=== PATIENT | male | born 1970 | race Caucasian/White ===

== ENCOUNTER 2020-05-13 08:50 | Outpatient (CLI) | payer OTHER, SELFPAY ==
--- NOTE | 2020-05-13 | EST_ITS ---
Patient Info Name: Jagjit Smith Age: 49 years : 1970 Gender: Male Ht: 71 in Wt: 270 lbs BSA: 2.52 m2 Exam Date: 05/13/2020 9:35 AM Exam Location: [facility] Stress Patient Status: Outpatient Admit Date: 05/13/2020 Staff Ordering Physician: Anthony, Love Crocker APRN Attending Provider: Joselito, Love Crocker APRN Exercise Technologist: Luciana Vora RDCS Exercise Physician: Cristhian Pineda DO Exam Type: CA stress test treadmill Study Info Indications R07.9 - Chest pain, unspecified A treadmill exercise stress test was performed. Summary 1. 1. Negative Timoteo exercise stress test for ischemic ST changes by ECG criteria. 2. 2. Reduced functional capacity, achieving 8 METs of workload. 3. 3. Appropriate HR response to exercise. 4. 4. Appropriate HR recovery at 1 minute post exercise. 5. 5. No imaginng with stress testing. 6. 6. Patient informed of the above results. Protocol: Timoteo Stress ECG Details Stage: REST Duration (min): 8 min : 19 sec Speed (mph): 0.0 Grade (%): 0 HR (bpm): 63 SBP (mmHg): 101 DBP (mmHg): 79 METS: --- Stage: REST Duration (min): 20 min : 3 sec Speed (mph): 0.0 Grade (%): 0 HR (bpm): 67 SBP (mmHg): 101 DBP (mmHg): 79 METS: --- Stage: STAGE 1 Duration (min): 1 min : 0 sec Speed (mph): 1.7 Grade (%): 10 HR (bpm): 101 SBP (mmHg): 101 DBP (mmHg): 79 METS: --- Stage: STAGE 1 Duration (min): 2 min : 0 sec Speed (mph): 1.7 Grade (%): 10 HR (bpm): 112 SBP (mmHg): 101 DBP (mmHg): 79 METS: --- Stage: STAGE 1 Duration (min): 3 min : 0 sec Speed (mph): 1.7 Grade (%): 10 HR (bpm): 119 SBP (mmHg): 122 DBP (mmHg): 99 METS: --- Stage: STAGE 2 Duration (min): 1 min : 0 sec Speed (mph): 2.5 Grade (%): 12 HR (bpm): 127 SBP (mmHg): 122 DBP (mmHg): 99 METS: --- Stage: STAGE 2 Duration (min): 2 min : 0 sec Speed (mph): 2.5 Grade (%): 12 HR (bpm): 135 SBP (mmHg): 157 DBP (mmHg): 95 METS: --- Stage: STAGE 2 Duration (min): 3 min : 0 sec Speed (mph): 2.5 Grade (%): 12 HR (bpm): 145 SBP (mmHg): 157 DBP (mmHg): 95 METS: --- Stage: STAGE 3 Duration (min): 0 min : 38 sec Speed (mph): 3.4 Grade (%): 14 HR (bpm): 150 SBP (mmHg): 157 DBP (mmHg): 95 METS: --- Stage: RECOVERY Duration (min): 0 min : 21 sec Speed (mph): 1.5 Grade (%): 0 HR (bpm): 152 SBP (mmHg): 177 DBP (mmHg): 93 METS: --- Stage: RECOVERY Duration (min): 1 min : 21 sec Speed (mph): 0.0 Grade (%): 0 HR (bpm): 116 SBP (mmHg): 193 DBP (mmHg): 91 METS: --- Stage: RECOVERY Duration (min): 2 min : 21 sec Speed (mph): 0.0 Grade (%): 0 HR (bpm): 100 SBP (mmHg): 193 DBP (mmHg): 91 METS: --- Stage: RECOVERY Duration (min): 3 min : 21 sec S
[2020-05-13 10:39] LABS: Basophils Absolute Auto 0.1 K/mm3 (0.0-0.1); Basophils Percent Auto 0.6 % (0.2-1.2); Eosinophils Absolute Auto 0.4 K/mm3 (0-0.3); Eosinophils Percent Auto 3.7 % (0-4.4); Hemoglobin 16.1 g/dL (14.0-18.0); Immature Granulocyte Absolute 0.05 K/mm3 (0.00-0.031); Immature Granulocyte Percent A 0.5 % (0-0.5); Lymphocytes Absolute Auto 3.13 K/mm3 (0.9-3.2); Lymphocytes Percent Auto 30.1 % (18.3-44.2); Mean Corpuscular HGB Conc 33.5 g/dl (32-36); Mean Corpuscular Hemoglobin 30.4 pg (26-34); Mean Corpuscular Volume 90.6 fl (80-100); Mean Platelet Volume 10.6 fl (7.4-10.4); Monocytes Absolute Auto 0.7 K/mm3 (0.1-0.6); Monocytes Percent Auto 7.1 % (2.6-8.5); Platelet Count Result 243 k/mm3 (150-375); Red Cell Distribution Width 13.4 % (11.5-14.5); White Blood Count 10.4 K/mm3 (4.5-10.0)
[2020-05-13 10:52] LABS: Alanine Aminotransferase 23 U/L (4-50); Albumin Level 3.9 g/dL (3.5-5.1); Alkaline Phosphatase 96 U/L (38-126); Anion Gap 8 mmol/L (8-16); Aspartate Amino Transferase 26 U/L (17-59); Bilirubin,Total 0.5 mg/dL (0.2-1.3); Blood Urea Nitrogen 15 mg/dL (9-20); Calcium 9.3 mg/dL (8.4-10.2); Carbon Dioxide 24 mmol/L (22-30); Chloride 104 mmol/L (98-107); Cholesterol 224 mg/dL (0-200); Estimated Glomerular Filt Rate > 60; Glucose 110 mg/dL (75-110); HDL Direct 36 mg/dL; Potassium 4.5 mmol/L (3.4-5.0); Sodium 136 mmol/L (137-145); Triglycerides 109 mg/dL (<150)
[2020-05-13 11:04] LABS: LDL Cholesterol Direct 151 mg/dL
[2020-05-13 11:08] LABS: Creatinine Urine 188.6 mg/dL
[2020-05-13 11:21] LABS: Free T4 Free Thyroxine 0.84 ng/mL (0.78-2.19); Vitamin D 25 Hydroxy 28.6 ng/mL
[2020-05-13 11:22] LABS: Total Triiodothyronine (T3) 1.28 NG/ML (0.97-1.69)
[2020-05-13 12:25] LABS: Microalbumin Urine Random > 1140.0 mg/L (0-16.7)
== END 2020-05-13 08:51 | disposition home or self-care (01) ==
PROVIDERS: PCP Family Medicine; Visit Provider Nurse Practitioner Family
DX: R07.9 Chest pain, unspecified (principal)
CPT/HCPCS: 36415; 80053; 80061; 82043; 82306; 84439; 84443; 84480; 85025; 93017

== ENCOUNTER 2020-12-26 16:38 | Outpatient (CLI) | payer OTHER, SELFPAY ==
--- NOTE | ~2020-12-26 | XR_ITS ---
EXAMINATION: XR foot LT min 3V DATE: 12/26/2020 16:57 INDICATION: Left heel pain. TECHNIQUE: 4 views of left foot were obtained. COMPARISON: None. FINDINGS: Bone alignment is normal. No fracture. There is mild osteoarthritis of first metatarsophala ngeal joint and talonavicular joint. There are enthesophytes at the posterior and plantar aspects of calcaneal tuberosity. IMPRESSION: 1. Mild polyarticular osteoarthritis. Reviewed, dictated and finalized at location A.
== END 2020-12-26 16:39 | disposition home or self-care (01) ==
LOC: ANHIMG 16:41
PROVIDERS: PCP Family Medicine; Visit Provider Nurse Practitioner
DX: M19.072 Primary osteoarthritis, left ankle and foot (principal)
CPT/HCPCS: 73630

== ENCOUNTER 2022-02-13 23:41 | Inpatient (IN) | payer OTHER, SELFPAY ==
--- NOTE | ~2022-02-13 | NM_ITS ---
EXAMINATION: NM pulmonary perfusion DATE: 02/14/2022 12:28 INDICATION: Chest pain. TECHNIQUE: 5.2 mCi Tc-99m MAA was administered intravenously for perfusion images. Scintigraphic willie ges of the chest were obtained. COMPARISON: Chest 2 views 02/14/2022 FINDINGS: Perfusion images show a moderate-sized defect in posterobasal segment left lower lobe. There is a mod erate-sized defect in posterobasal segment right lower lobe. There are small defects in the lower lob es and upper lobes. There is a moderate-sized defect in apicoposterior segment left upper lobe. IMPRESSION: 1. Nondiagnostic (intermediate probability for pulmonary embolism). Reviewed, dictated and finalized at location A.
--- NOTE | ~2022-02-13 | XR_ITS ---
EXAMINATION: XR chest 2V DATE: 02/14/2022 00:21 INDICATION: Chest pain. TECHNIQUE: Frontal and lateral views of the chest were obtained. COMPARISON: Chest 2 views 03/30/2016 FINDINGS: Roosevelt B-lines are noted, consistent mild pulmonary edema. No pleural effusion or pneumotho rax. The heart size is normal. IMPRESSION: 1. Mild pulmonary edema. Reviewed, dictated and finalized at location A. IMPRESSION: 1. Mild pulmonary edema.
--- NOTE | ~2022-02-13 | CT_ITS ---
EXAMINATION: CTA chest PE protocol DATE: 02/15/2022 11:42 INDICATION: Dyspnea. TECHNIQUE: Computed tomography angiography (CTA) of the chest was performed with 100 mL Omnipaque-350 intravenous contrast timed to evaluate the pulmonary arteries. Coronal maximum intensity projection 3D-reconstructions were created by the technologist. Automated exposure control and iterative reconst ruction technique were employed. The dose-length product was 859.77 mGy-cm. COMPARISON: Chest 2 views 02/14/2022 FINDINGS: There is mild emphysema. There is mild scarring in paraspinal right lower lobe. There is no pleural effusion. The heart size is normal. There are coronary artery calcifications. No pericardial effusion. There is no pulmonary embolus. There is severe cervical spondylosis and mild thoracic spon dylosis. IMPRESSION: 1. No pulmonary embolus. Sensitivity is mildly decreased by motion artifact. 2. Mild emphysema. Reviewed, dictated and finalized at location A.
--- NOTE | 2022-02-13 23:42 | ECG_ITS ---
Measurements Intervals [place] Rate: 85 P: 51 VA: 138 QRS: 22 QRSD: 101 T: 143 QT: 368 QTc: 438 Interpretive Statements SINUS RHYTHM ST DEVIATION AND MODERATE T-WAVE ABNORMALITY, CONSIDER LATERAL ISCHEMIA ABNORMAL ECG NO PREVIOUS ECG AVAILABLE FOR COMPARISON Electronically Signed On 02-14-2022 14:42:38 CDT by Randy Krishna M.D.
[2022-02-13 23:43] VITALS: BP 191/125; PULSE 92; RESP 22; TEMP 36.7; O2SAT 98
[2022-02-14] VITALS (46 sets, daily range): BP systolic 123–194; BP diastolic 75–120; PULSE 65–96; RESP 11–24; TEMP 35.9–36.7; O2SAT 94–100; BMI 36.2
[2022-02-14 00:17] LABS: Basophils Percent Auto 0.3 % (0.2-1.2); Eosinophils Absolute Auto 0.4 K/mm3 (0-0.3); Hematocrit 43.1 % (42.0-52.0); Hemoglobin 14.6 g/dL (14.0-18.0); Immature Granulocyte Absolute 0.05 K/mm3 (0.00-0.031); Immature Granulocyte Percent A 0.4 % (0-0.5); Lymphocytes Absolute Auto 2.98 K/mm3 (0.9-3.2); Lymphocytes Percent Auto 25.2 % (18.3-44.2); Mean Corpuscular HGB Conc 33.9 g/dl (32-36); Mean Corpuscular Hemoglobin 29.6 pg (26-34); Mean Corpuscular Volume 87.2 fl (80-100); Mean Platelet Volume 10.5 fl (7.4-10.4); Monocytes Absolute Auto 0.8 K/mm3 (0.1-0.6); Monocytes Percent Auto 6.9 % (2.6-8.5); Neutrophils Absolute Auto 7.6 K/mm3 (1.3-6.7); Neutrophils Percent Auto 64.2 % (45.5-73.1); Platelet Count Result 240 k/mm3 (150-375); Red Blood Count 4.94 M/mm3 (4.6-6.20); Red Cell Distribution Width 13.3 % (11.5-14.5); White Blood Count 11.8 K/mm3 (4.5-10.0)
[2022-02-14 00:22] LABS: Prothrombin Time 12.8 Seconds (11.1-14.7)
[2022-02-14 00:23] LABS: Alanine Aminotransferase 25 U/L (6-50); Albumin Level 3.7 g/dL (3.5-5.1); Alkaline Phosphatase 102 U/L (38-126); Anion Gap 7 mmol/L (8-16); Aspartate Amino Transferase 45 U/L (17-59); Bilirubin,Total 0.1 mg/dL (0.2-1.3); Blood Urea Nitrogen 25 mg/dL (9-20); Calcium 8.5 mg/dL (8.4-10.2); Carbon Dioxide 26 mmol/L (22-30); Chloride 105 mmol/L (98-107); Estimated CRCL calculation 71 ml/min; Estimated Glomerular Filt Rate 54; Glucose 131 mg/dL (65-110); Lipase 88 U/L (23-300); Partial Thromboplastin Time 28.3 SECONDS (22.3-36.8); Potassium 3.8 mmol/L (3.4-5.0); Sodium 138 mmol/L (137-145)
--- NOTE | 2022-02-14 01:06 | PC.NURSE ---
Talked to Dania in lab at 01:06 to add on D Dimer
--- NOTE | 2022-02-14 01:14 | ED.CHESTPAIN ---
HPI - Chest Pain General Chief Complaint: Chest Pain Stated Complaint: chest pain Time Seen by Provider: 02/14/22 00:41 History of Present Illness HPI narrative: 51-year-old male with smoker hypertension presenting to the emergency department for evaluation of left-sided chest wall pain. Patient states last night he began developing the chest pain and has persisted. Patient did have a stress test end of last year at [facility]. Patient does report some associated chest tightness with this. Patient denies any radiation of the left-sided chest pain into his back into his arm. Related Data Home Medications Medication Instructions Recorded Confirmed No Home Medications 02/14/22 02/14/22 Allergies Allergy/AdvReac Type Severity Reaction Status Date / Time milk Allergy Mild Unknown Verified 02/13/22 23:49 iodine Allergy Unknown Unknown Verified 02/13/22 23:49 povidone-iodine Allergy Unknown RASH Verified 02/13/22 23:49 Review of Systems Review of Systems: CONSTITUTIONAL: Denies fever, chills, or sweats. EYES: Denies visual changes, redness, or discharge. ENT: Denies rhinorrhea, congestion, sore throat, or otalgia. CARDIOVASCULAR: See HPI RESPIRATORY: Denies cough but does have some wheezing, chest tightness and some shortness of breath GASTROINTESTINAL: Denies abdominal pain, nausea, vomiting, or diarrhea. GENITOURINARY: Denies dysuria or hematuria. SKIN: Denies rash or itching. MUSCULOSKELETAL: Denies back pain, joint pain, or myalgia. NEUROLOGIC: Denies headache, numbness, or weakness. [facility] Past Medical History Medical History (Updated 02/14/22 @ 02:18 by Bc Latif MD) Degenerative arthritis of knee, bilateral GERD (gastroesophageal reflux disease) Hernia repair 2010 Hypertension Osteoarthritis of right knee Surgical History Surgical History H/O knee surgery R knee scope, medial and lateral meniscus, 2016 Dr. 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 HEAD: normocephalic, atraumatic. EYES: PERRLA/EOMI, conjunctivae clear. NOSE: Normal no drainage NECK: Supple. No adenopathy, no masses. RESPIRATORY: Airway patent, respirations nonlabored. Expiratory wheeze bilaterally CARDIOVASCULAR: Regular rate and rhythm without murmurs rubs or gallops. No reproducible chest wall tenderness to palpation. ABDOMINAL: Soft, nontender, nondistended, normal bowel sounds MUSCULOSKELETAL: Moves all extremities. Strength/ROM intact, No edema, No calf tenderness. NEURO: Alert. Cranial nerves II through XII intact. Grossly intact SKIN: Warm, dry. Normal Color Course Course Emergency Course: Patient did receive 324 mg aspirin, 4 mg morphine, losartan, sublingual nitro, 25 mg of p.o. metoprolol and states his pain is now resolved. Repeat EKG still does show ischemic change but no evidence of acute STEMI. Discussed with Dr. Allen for cardiology and patient was also treated with 6.25 mg of Coreg to be given twice daily. Patient will be made NPO. She requested 1 dose of Lovenox to be given. Cardiology also requested admission by the hospitalist due to the blood pressure issues along with wheezing and ultimate need for a VQ scan. Patient did have an lubna
[2022-02-14] MEDS: MORPHINE SULFATE (*CRX) 4 MG/ML INJ IV PUSH (01:18)
[2022-02-14] MEDS: METOPROLOL TARTRATE 25 MG TABLET PO (01:20)
[2022-02-14] MEDS: NITROGLYCERIN SL 0.4 MG TABLET SUBLINGUAL (01:21)
[2022-02-14] MEDS: LOSARTAN POTASSIUM 12.5 MG TABLET PO (01:46)
[2022-02-14] MEDS: ALBUTEROL SULFATE NEB 2.5 MG/3 ML INH 5 MG INHALATION (01:51)
[2022-02-14] MEDS: ENOXAPARIN 120 MG/0.8 ML SYRINGE 110 MG SUB-Q (02:15)
[2022-02-14] MEDS: NITROGLYCERIN OINTMENT 1 INCH DOSE TRANSDERM (02:36)
[2022-02-14] MEDS: predniSONE 40 MG, predniSONE 10 MG 50 MG PO ×2 (03:49→10:28)
--- NOTE | 2022-02-14 04:55 | ADMGEN ---
This patient, Jagjit Smith, was admitted to IMU Room 200-01 at 0445. Patient/family oriented to hospital policies and general routines including ID bracelet, bed and alarms, visiting hours, pain management, procedures, bathroom and other care routines, personal items, smoking policy, room service/diet, and visiting hours. Information on how to activate the Rapid Response Team has been discussed. Patient/Family are encouraged to report perceived risks to care and to ask questions if they do not understand what they are told or what they should do.
--- NOTE | 2022-02-14 05:19 | ADMGEN ---
This patient, Jagjit Smith, was admitted to IMU Room 200-01 @ 0510. Patient/family oriented to hospital policies and general routines including ID bracelet, bed and alarms, visiting hours, pain management, procedures, bathroom and other care routines, personal items, smoking policy, room service/diet, and visiting hours. Information on how to activate the Rapid Response Team has been discussed. Patient/Family are encouraged to report perceived risks to care and to ask questions if they do not understand what they are told or what they should do.
--- NOTE | 2022-02-14 07:25 | ECG_ITS ---
Measurements Intervals [place] Rate: 78 P: 62 NM: 146 QRS: 42 QRSD: 96 T: 142 QT: 401 QTc: 459 Interpretive Statements SINUS RHYTHM WITH SINUS ARRHYTHMIA ST DEVIATION AND MODERATE T-WAVE ABNORMALITY, CONSIDER ANTEROLATERAL ISCHEMIA ABNORMAL ECG COMPARED TO ECG 02/14/2022 00:58:02 NO SIGNIFICANT CHANGES Electronically Signed On 02-14-2022 14:47:35 CDT by Randy Krishna M.D.
--- NOTE | 2022-02-14 07:41 | PM.IMHP ---
H&P: HPI History of Present Illness Date/Time: 02/14/22 07:41 Chief Complaint: Chest pain Narrative: 51-year-old male with past medical history of hyperlipidemia, hypertension, tobacco use, as well as former meth and alcohol use who presented to the ER with chest pain. Patient reported that the symptoms started night before last. The pain as in the central chest and radiated around to the left chest in ribcage. 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 He also reports prior numerous rib fractures on the left side and thought that it could be due to old scarring had from prior rib fractures. The symptoms persisted and he decided to come to the ER. His pain is aching in nature with occasional episodes of sharp and stabbing. The pain is been waxing and waning. He reports that his current pain is a 1-2/10 in intensity. Has worse the pain was a 30/10 in intensity. The pain radiates through to the back. Has been accompanied by some diaphoresis. The patient reports that the pain is accompanied by a heaviness in his chest he reports that he feels like he is mountain climbing and cannot catch his breath. His he has had 1-2 weeks of increasing wheezing. He has had 1 week of increased cough. He reports that his sputum is always black to green in color. He used to smoke 3 packs of cigarettes per day but has cut down to 1 pack of cigarettes per day over the last year. He does have a known history of hypertension but has not been taking any antihypertensives for quite some time. When he arrived to the ER his blood pressure was markedly elevated into the 190/120 range. He denies any lower extremity edema. He has been having some orthopnea. His pain is made worse with deep breathing and coughing. He denies any fevers or chills. He received his initial COVID vaccines years but has not had his booster. He reports that his urine has been darker than usual but he assumed that this was due to being dehydrated from working outside in the heat. He admits that he does not choose the best oral intake for hydration purposes. He does have a history of hyperlipidemia and hypertension but has not been taking his medications. He had a treadmill stress test April 2020 that was negative for evidence of ischemia. Review of Systems Review of Systems: 12 systems were reviewed with pertinent positives and negatives per HPI. Except as documented in the HPI, all other systems were reviewed and are negative. ON LICENSE OF [facility] Past Medical History Medical History (Updated 02/14/22 @ 07:53 by Saritha Swanson DO) Continuous tobacco abuse Degenerative arthritis of knee, bilateral Essential hypertension GERD (gastroesophageal reflux disease) Hyperlipidemia Obstructive sleep apnea Osteoarthritis of right knee Surgical History Surgical History (Updated 02/14/22 @ 07:53 by Saritha Swanson DO) H/O knee surgery R knee scope, medial and lateral meniscus, 2016 Dr. Connell History of tonsillectomy and adenoidectomy (06/2014) Complicated by postop hemorrhage requiring for additional surgeries History of umbilical hernia repair (08/2009) Family History Family History Mother Breast cancer Osteoarthritis Father , At age 66 Small cell lung cancer Social History Social History (Updated 02/14/22 @ 07:58 by Saritha Swanson DO) Social History: The patient lives in [place] with his of 17 years. He has 2 biological children I does not have much contact with. He has raised 6 step children and 2 foster children. His is currently with a baby after 17 years of trying. He has smoked as much as 3 packs of cigarettes per day but cut down to 1 pack of cigarettes per day last year. He used to drink 2 pint of hard liquor a day but quit drinking 2 months ago. He used to smoke methamphetamines but quit in 2004. He still smokes marijuana on occasion.
[2022-02-14] MEDS: SODIUM CHLORIDE 0.9% IV 1,000 ML 999 ML IV CONT ×2 (08:23→09:37)
[2022-02-14 09:03] LABS: SARS-CoV-2 RNA PCR Negative
[2022-02-14] MEDS: carvediloL 6.25 MG TABLET PO ×2 (10:29→20:38)
--- NOTE | 2022-02-14 10:33 | PM.CNCAR ---
Assessment and Plan Assessment and plan (1) Non-ST elevation HI (NSTEMI): Code(s): I21.4 - Non-ST elevation (NSTEMI) myocardial infarction Status: Acute Assessment and Plan: Patient presents with progressive shortness of breath, intermittent chest pain, EKG changes concerning for ischemia with elevated troponin consistent with non ST elevation myocardial infarction. Discussed presentation and concerns at length with the patient. Patient verbalized understanding. Recommend coronary angiography for delineation of his coronary anatomy. Patient has been pretreated with prednisone and antihistamines given reported rash with povidone iodine in the past. Risks versus benefits coronary angiography discussed including but not limited to myocardial infarction, stroke, bleeding complications. Patient agreed to proceed with coronary angiography. Discussed with Dr. Marques of Interventional Cardiology who also agrees. Further recommendations based on results of coronary angiography. Unequivocally counseled patient on importance of compliance with all medications including dual antiplatelet therapy and if not he runs a risk of serious potential complications including but not limited to myocardial infarction and or . Patient verbalized understanding and states he will be absolutely compliant with medications as recommended. DVT prophylaxis 2D echocardiogram And aspirin 81 mg daily, statin therapy. (2) Severe uncontrolled hypertension: Code(s): I10 - Essential (primary) hypertension Status: Acute Assessment and Plan: Improved but with suboptimal control. Initiate antihypertensive therapy as renal function permits. Add losartan 25 mg daily, Toprol XL 25 mg daily. Monitor renal function. (3) Continuous tobacco abuse: Code(s): Z72.0 - Tobacco use Status: Acute Assessment and Plan: Smoking cessation counseling performed (4) COPD exacerbation: Code(s): J44.1 - Chronic obstructive pulmonary disease with (acute) exacerbation Status: Acute Assessment and Plan: Per primary service. Bronchodilator therapy. (5) Acute kidney injury: Code(s): N17.9 - Acute kidney failure, unspecified Status: Acute Assessment and Plan: Resolved since presentation. Continue monitor closely. Likely secondary to degree of intravascular volume depletion. History of Present Illness History of Present Illness Consult date/time: Date of service: 02/14/22 10:33 Cardiology consultation at the request of Dr. Swanson for opinion regarding chest pain and elevated troponin Requesting physician: Saritha Swanson, Consult reason: chest pain Reason For Visit: NSTEMI Narrative: Patient is a pleasant 51-year-old male with past medical history significant for untreated hypertension, hyperlipidemia, history of tobacco abuse, remote methamphetamine and alcohol abuse presented to ER with proximally 2 days of intermittent chest pain and shortness of breath. Patient notes please 1 week or so of increased cough, shortness of breath and wheezing with activity and complained of chest pain located in the center and left chest described as a heavy pressure-like sensation as well as intermittent sharp pains. He describes sharp fleeting chest pain with cough or deep breathing with residual intervening chest pressure and or tightness which then worsened and given his progressive shortness of breath he presented to ER for further evaluation. He notes residual mild chest discomfort worse with coughing deep breathing. At presentation patient was significantly hypertensive with systolic blood pressure in the 190s with a creatinine 1.4 which has improved to 0.9. Initial troponin was elevated at 1.760 subsequently 1.970, 3.190, 3.120. Patient denies any prior known history of CAD and myocardial infarction. Denies fevers, chills, bleeding, near-syncope or syncope or palpitations. Patient states he
[2022-02-14 10:44] LABS: Hemoglobin 13.4 g/dL (14.0-18.0); Mean Corpuscular HGB Conc 31.9 g/dl (32-36); Mean Corpuscular Hemoglobin 28.8 pg (26-34); Mean Corpuscular Volume 90.1 fl (80-100); Mean Platelet Volume 10.6 fl (7.4-10.4); Platelet Count Result 210 k/mm3 (150-375); Red Blood Count 4.66 M/mm3 (4.6-6.20); Red Cell Distribution Width 13.3 % (11.5-14.5); White Blood Count 9.6 K/mm3 (4.5-10.0)
[2022-02-14 11:07] LABS: Anion Gap 2 mmol/L (8-16); Blood Urea Nitrogen 19 mg/dL (9-20); Carbon Dioxide 25 mmol/L (22-30); Chloride 109 mmol/L (98-107); Cholesterol 162 mg/dL (0-200); Creatine Kinase 229 U/L (55-170); Estimated CRCL calculation 110 ml/min; Estimated Glomerular Filt Rate > 60; Glucose 123 mg/dL (65-110); HDL Direct 40 mg/dL; Potassium 4.3 mmol/L (3.4-5.0); Sodium 136 mmol/L (137-145); Triglycerides 58 mg/dL (<150)
[2022-02-14 11:15] LABS: LDL Cholesterol Direct 100 mg/dL
[2022-02-14 11:28] LABS: NT Pro B Type Natriuretic Pept 2910 pg/mL (5-100)
[2022-02-14] MEDS: FUROSEMIDE INJ 40 MG/4 ML VIAL IV PUSH (12:28)
[2022-02-14] MEDS: diphenhydrAMINE HCl CAP 25 MG CAPSULE 50 MG PO (13:01)
--- NOTE | 2022-02-14 13:39 | WPDMODSED ---
Moderate Sedation Note-Pt Data Patient Data Diagnosis: acute coronary syndrome Present Complaint: intermittent chest pain Procedure to be performed/Plan: left heart catheterization/possible PCI Allergies Allergy/AdvReac Type Severity Reaction Status Date / Time milk Allergy Mild Unknown Verified 02/13/22 23:49 povidone-iodine Allergy Unknown RASH Verified 02/13/22 23:49 Home Medications Medication Instructions Recorded Confirmed Type No Home Medications 02/14/22 02/14/22 History Current Medications: Active Medications Albuterol (Albuterol Sulfate Neb 2.5 Mg/3 Ml Inh) 2.5 mg INHALATION Q6HRT [facility] Last Admin: 02/14/22 13:31 Dose: Not Given Aspirin (Aspirin 81 Mg Enteric Tablet) 81 mg PO QAM [facility] Atorvastatin Calcium (Atorvastatin 40 Mg Tablet) 80 mg PO DAILY [facility] Carvedilol (Carvedilol 6.25 Mg Tablet) 6.25 mg PO Q12HR [facility] Last Admin: 02/14/22 10:29 Dose: 6.25 mg Diphenhydramine HCl (Diphenhydramine Hcl Cap 25 Mg Capsule) 50 mg PO ONCE ONE Stop: 02/14/22 16:01 Last Admin: 02/14/22 13:01 Dose: 50 mg Hydralazine HCl (Hydralazine Hcl 20 Mg/Ml Vial) 10 mg IV PUSH Q4H PRN PRN Reason: SBP greater than 160 Ipratropium [place] (Ipratropium Br 0.02% Inh Soln 0.5 Mg/2.5 Ml Vial) 0.5 mg INHALATION Q6HRT [facility] Last Admin: 02/14/22 13:31 Dose: Not Given Morphine Sulfate (Morphine Sulfate (*Crx) 4 Mg/Ml Inj) 4 mg IV PUSH Q2H PRN PRN Reason: Pain Rated 7-10 Perflutren Lipid Microsphere (Perflutren Lipid Microspheres 1.5 Ml Vial Diluted To 10 Ml Total Volume) 0 ml IV PUSH ONCE PRN; Protocol PRN Reason: adequate visualization Prednisone 40 mg/ Prednisone (10 mg) 50 mg PO Q6H [facility] Stop: 02/14/22 16:01 Last Admin: 02/14/22 10:28 Dose: 50 mg Sedation/Anesthesia: No previous sedation/anesthesia problems (including family history). [facility] Past Medical History Medical History Continuous tobacco abuse Degenerative arthritis of knee, bilateral Essential hypertension GERD (gastroesophageal reflux disease) Hyperlipidemia Obstructive sleep apnea Osteoarthritis of right knee Surgical History Surgical History H/O knee surgery R knee scope, medial and lateral meniscus, 2016 Dr. Connell History of tonsillectomy and adenoidectomy (06/2014) Complicated by postop hemorrhage requiring for additional surgeries History of umbilical hernia repair (08/2009) Family History Family History Mother Breast cancer Osteoarthritis Father , At age 66 Small cell lung cancer Social History Social History Social History: The patient lives in [place] with his of 17 years. He has 2 biological children I does not have much contact with. He has raised 6 step children and 2 foster children. His is currently with a baby after 17 years of trying. He has smoked as much as 3 packs of cigarettes per day but cut down to 1 pack of cigarettes per day last year. He used to drink 2 pint of hard liquor a day but quit drinking 2 months ago. He used to smoke methamphetamines but quit in 2004. He still smokes marijuana on occasion. 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
--- NOTE | 2022-02-14 14:44 | ECG_ITS ---
Measurements Intervals [place] Rate: 70 P: 69 [place]: 151 QRS: 51 QRSD: 97 T: 129 QT: 460 QTc: 498 Interpretive Statements SINUS RHYTHM BASELINE ARTIFACT ST DEVIATION AND MODERATE T-WAVE ABNORMALITY, CONSIDER ANTEROLATERAL ISCHEMIA ABNORMAL ECG COMPARED TO ECG 02/14/2022 07:35:22 NO SIGNIFICANT CHANGES Electronically Signed On 02-14-2022 16:46:32 CDT by Randy Krishna M.D.
--- NOTE | 2022-02-14 14:51 | WPDCARDPROC ---
Cardiac Cath Procedure Note Date of procedure:: 02/14/22 Performing physician:: Zack Marques MD Indication:: acute coronary syndrome Brief clinical history:: this is a 51-year-old gentleman with a prior history of substance abuse who entered the hospital with intermittent chest pain, anterior ischemic ST segment and T-wave abnormalities and moderate troponin rise. Procedure Procedure performed:: Left ventriculogram coronary angiogram PCI(ASHLEY) to the LAD Sedation/Medication given:: fentanyl 50 mg Versed 2 mg case start time 1:43 p.m. case end time 2:37 p.m. sedation provided by Jaycob Dias RN, trained observer Access site:: right femoral artery Estimated blood loss:: 25 cc Procedure note:: patient was brought to the cardiac catheterization lab in the postabsorptive state where the right femoral region was prepped and draped in the usual sterile fashion. Anesthesia was provided with 1% lidocaine infiltrated locally. Using the modified Seldinger technique the femoral artery was punctured a 5 Lao vascular sheath was placed. I then used a 5 Lao angled pigtail catheter to measure left-sided hemodynamics and to inject LV g in the TORRES projection. After this I used a standard 5 Lao JR4 catheter to engage and inject the right coronary artery and then a 5 Lao FL 5 catheter to engage and inject the left coronary artery following this the cine PCI of the left anterior descending was recommended and carried out as detailed below. Prior to PCI a 5 Lao sheath was changed out over the guidewire for a 6 Lao sheath. He was systemically anticoagulated with a bolus and infusion of Angiomax and he received aspirin 325 mg and clopidogrel 600 mg in the cath lab technologist. Following PCI the sheath was sutured into position the patient taken to the holding area for recovery and sheath removal. Procedure was well tolerated and uncomplicated. Patient left the cath lab technologist with no evidence of groin hematoma. Findings:: Hemodynamics: Central aortic pressure is 150 over 84 left ventricle 150/5 end-diastolic pressure is 24. No significant gradient on pullback across the aortic valve. Left ventricle: The LV is slightly enlarged the systolic function is significantly reduced. The anterior wall is mildly hypodynamic the inferior posterior wall is severely hypodynamic. The global ejection fraction I would visually estimate to be 35%. The left main coronary artery is short and nicely patent the left anterior descending is a moderate caliber artery proximally and medium to small caliber after the major diagonal takes its origin. After the major diagonal is seen there is a 99% stenosis in the LAD. There is JIMMY 2 flow distal to this high-grade lesion. The circumflex is a moderate caliber artery is dominant to the posterior circulation the circumflex system, marginal branches, posterior branches are angiographically free of disease. The right coronary artery is medium in caliber non dominant right ventricular vessel without any significant disease intervention: The left coronary artery was engaged using a 6 Lao CLS 4 guiding catheter. I used a 0.014 BMW coronary guidewire to wire the LAD easily advancing the wire down into the apical segment. The target lesion was then pre-dilated using a 2.0 x 20 and then a 3.0 x 20 Monster angioplasty balloon. Following the pre dilatation there was minimal residual stenosis. Then I stented the target lesion using a 3.0 x 26 mm [facility] stent at 12 atmospheres for 60 seconds with very good angiographic result. There was no residual stenosis disruption dissection or distal embolization. Conclusion:: 1. Severe single-vessel coronary artery disease with 99% stenosis seen in the LAD after the major diagonal origin is seen. This lesion was successfully treated with the Orsiro drug-eluting stent detailed above with a good angiographic result 2. left coronary domina
--- NOTE | 2022-02-14 14:51 | PC.NURSE ---
To cardiac labor relations consultant for procedure
[2022-02-14] MEDS: ALBUTEROL SULFATE NEB 2.5 MG/3 ML INH INHALATION (15:16)
[2022-02-14] MEDS: IPRATROPIUM BR 0.02% INH SOLN 0.5 MG/2.5 ML VIAL INHALATION (15:16)
[2022-02-14] MEDS: hydrALAZINE HCL 20 MG/ML VIAL 10 MG IV PUSH (16:45)
[2022-02-14] MEDS: SODIUM CHLORIDE 0.9% IV 1,000 ML 125 ML IV CONT (16:49)
--- NOTE | 2022-02-14 20:05 | PC.NURSE ---
1900- received pt from cardiac labor specialist- right groin with dressing CDI- pedal pulse palpable- pt denies pain- bedrest until @ [place]- oncoming RN at bedside and received report- monitor SR 90's
[2022-02-14] MEDS: POTASSIUM CHLORIDE 20 MEQ TABLET 40 MEQ PO (20:39)
--- NOTE | 2022-02-14 21:14 | PCRCNOTE ---
1999 treatment charted over in OCT. Pt given 1999 treatment, RT unable to scan in [facility].
[2022-02-15] VITALS (21 sets, daily range): BP systolic 139–162; BP diastolic 86–115; PULSE 71–91; RESP 14–22; TEMP 36.2–36.8; O2SAT 96–100
[2022-02-15] MEDS: IPRATROPIUM BR 0.02% INH SOLN 0.5 MG/2.5 ML VIAL INHALATION ×3 (01:58→14:17)
[2022-02-15] MEDS: ALBUTEROL SULFATE NEB 2.5 MG/3 ML INH INHALATION ×2 (01:58→08:26)
--- NOTE | 2022-02-15 05:11 | ECG_ITS ---
Measurements Intervals [place] Rate: 86 P: 61 [place]: 145 QRS: 45 QRSD: 97 T: 185 QT: 366 QTc: 438 Interpretive Statements SINUS RHYTHM WITH SINUS ARRHYTHMIA ST SEGMENT ABNORMALITY COMPATIBLE WITH ANTERIOR ISCHEMIA COMPARED TO ECG 02/14/2022 15:12:[address] SEGMENT CHANGES ARE IMPROVED Electronically Signed On 02-16-2022 16:19:54 CDT by Zack Marques M.D.
--- NOTE | 2022-02-15 08:42 | PM.IMPN ---
Progress Note: A&P Assessment and Plan (1) Non-ST elevation GA (NSTEMI): Code(s): I21.4 - Non-ST elevation (NSTEMI) myocardial infarction Status: Acute (2) COPD exacerbation: Code(s): J44.1 - Chronic obstructive pulmonary disease with (acute) exacerbation Status: Acute (3) Elevated d-dimer: Code(s): R79.89 - Other specified abnormal findings of blood chemistry Status: Acute (4) Continuous tobacco abuse: Code(s): Z72.0 - Tobacco use Status: Acute (5) Severe uncontrolled hypertension: Code(s): I10 - Essential (primary) hypertension Status: Acute Subjective Date/time seen: 02/15/22 08:42 Patient is a 51 yo male with medical history of hypertension, hyperlipidemia, GERD, GABBY and tobacco dependence, who presented from home for c/o chest pain. Objective Data Vital Signs Vital Signs: Vital Signs - 24 hr 02/14/22 10:29 02/14/22 10:00 02/14/22 15:17 Temperature Pulse Rate 86 77 69 Respiratory Rate 13 Blood Pressure Pulse Oximetry 100 Oxygen Delivery Room Air 02/14/22 15:10 02/14/22 15:41 02/14/22 14:55 Temperature 97.3 F L Pulse Rate 69 68 65 Respiratory Rate 13 13 14 Blood Pressure 164/120 H Pulse Oximetry 99 Oxygen Delivery Room Air 02/14/22 16:40 02/14/22 15:10 02/14/22 15:25 Temperature Pulse Rate 72 65 66 Respiratory Rate 16 16 16 Blood Pressure 152/107 H 153/112 H 151/96 H Pulse Oximetry 99 100 99 Oxygen Delivery Room Air Room Air Room Air 02/14/22 15:40 02/14/22 16:10 02/14/22 17:00 Temperature Pulse Rate 67 67 73 Respiratory Rate 14 16 16 Blood Pressure 140/99 H 134/106 H 137/83 Pulse Oximetry 97 100 99 Oxygen Delivery Room Air Room Air Room Air 02/14/22 17:05 02/14/22 17:10 02/14/22 17:15 Temperature Pulse Rate 72 75 74 Respiratory Rate 15 13 15 Blood Pressure 123/94 H 140/102 H 137/98 H Pulse Oximetry 99 99 99 Oxygen Delivery Room Air Room Air Room Air 02/14/22 17:20 02/14/22 17:25 02/14/22 17:30 Temperature Pulse Rate 70 72 77 Respiratory Rate 21 H 14 19 Blood Pressure 123/94 H 147/91 H 135/95 H Pulse Oximetry 99 99 99 Oxygen Delivery Room Air Room Air Room Air 02/14/22 17:35 02/14/22 17:40 02/14/22 17:45 Temperature Pulse Rate 77 78 77 Respiratory Rate 18 14 12 Blood Pressure 132/102 H 146/104 H 137/105 H Pulse Oximetry 99 99 99 Oxygen Delivery Room Air Room Air Room Air 02/14/22 17:50 02/14/22 18:00 02/14/22 18:15 Temperature Pulse Rate 76 78 76 Respiratory Rate 12 18 16 Blood Pressure 142/93 H 141/99 H 148/98 H Pulse Oximetry 100 99 100 Oxygen Delivery Room Air Room Air Room Air 02/14/22 18:30 02/14/22 18:45 02/14/22 20:38 Temperature Pulse Rate 80 77 95 Respiratory Rate 13 11 L Blood Pressure 154/101 H 143/101 H Pulse Oximetry 100 100 Oxygen Delivery Room Air Room Air 02/14/22 21:19 02/14/22 21:20 02/14/22 21:30 Temperature Pulse Rate 96 92 Respiratory Rate 20 18 Blood Pressure Pulse Oximetry 96 Oxygen Delivery Room Air 02/14/22 20:00 02/14/22 20:00 02/14/22 21:43 Temperature Pulse Rate 92 92 96 Respiratory Rate 18 Blood Pressure Pulse Oximetry 96 Oxygen Delivery Room Air 02/14/22 20:29 02/14/22 21:50 02/14/22 22:50 Temperature 97.8 F 98.0 F 97.6 F Pulse Rate 96 95 93 Respiratory Rate 16 14 14 Blood Pressure 149/92 H 151/75 H 144/83 H Pulse Oximetry 97 97 100 Oxygen Delivery 02/15/22 00:04 02/15/22 00:00 02/15/22 00:00 Temperature 98.0 F Pulse Rate 91 90 90 Respiratory Rate 14 14 Blood Pressure 139/86 Pulse Oximetry 96 96 Oxygen Delivery Room Air 02/15/22 02:00 02/15/22 02:08 02/15/22 02:00 Temperature Pulse Rate 83 82 85 Respiratory Rate 16 16 Blood Pressure Pulse Oximetry Oxygen Delivery 02/15/22 03:51 02/15/22 03:51 02/15/22 06:00 Temperature Pulse Rate 76 78 78 Respiratory Rate 16 Blood Pressure Pulse Oximetry 96 Oxygen
[2022-02-15] MEDS: PERFLUTREN LIPID MICROSPHERES 1.5 ML VIAL DILUTED TO 10 ML TOTAL VOLUME IV PUSH (08:54)
--- NOTE | 2022-02-15 08:54 | IVDEFINITY ---
Prior to administration of IV Definity the patient was educated on the risks and benefits of the imaging enhancing agent including potential adverse side effects. The patient verbalized understanding. Allergies were verified. No exclusion criteria were identified and at least one of the following inclusion criteria were met: 1) physician request, 2) patient technically difficult to image (per the [place] [employer]ocardi[employer] guidelines of two or more segments not discernable within the apical view), or 3) questionable left ventricular function. ?
[2022-02-15 09:15] LABS: Hematocrit 43.5 % (42.0-52.0); Mean Corpuscular HGB Conc 32.2 g/dl (32-36); Mean Corpuscular Hemoglobin 28.9 pg (26-34); Mean Corpuscular Volume 89.9 fl (80-100); Mean Platelet Volume 10.8 fl (7.4-10.4); Platelet Count Result 259 k/mm3 (150-375); Red Blood Count 4.84 M/mm3 (4.6-6.20); Red Cell Distribution Width 13.9 % (11.5-14.5); White Blood Count 14.5 K/mm3 (4.5-10.0)
[2022-02-15] MEDS: CLOPIDOGREL BISULFATE 75 MG TABLET PO (09:17)
[2022-02-15] MEDS: carvediloL 6.25 MG TABLET PO (09:17)
[2022-02-15] MEDS: ASPIRIN 81 MG ENTERIC TABLET PO (09:18)
[2022-02-15] MEDS: ATORVASTATIN 40 MG TABLET 80 MG PO (09:18)
[2022-02-15 09:37] LABS: Anion Gap 5 mmol/L (8-16); Blood Urea Nitrogen 17 mg/dL (9-20); Calcium 8.2 mg/dL (8.4-10.2); Carbon Dioxide 25 mmol/L (22-30); Chloride 108 mmol/L (98-107); Estimated CRCL calculation 92 ml/min; Estimated Glomerular Filt Rate > 60; Glucose 102 mg/dL (65-110); Potassium 3.7 mmol/L (3.4-5.0); Sodium 138 mmol/L (137-145)
--- NOTE | 2022-02-15 10:32 | ECHO_ITS ---
Patient Info Name: Jagjit Smith Age: 51 years : 1970 Gender: Male Ht: 70 in Wt: 250 lbs BSA: 2.41 m2 HR: 80 bpm BP: 162 / 93 mmHg Heart Rhythm: Sinus Rhythm Exam Date: 02/15/2022 8:50 AM Exam Location: [facility] Patient Status: Inpatient Admit Date: 02/14/2022 Staff Ordering Physician: Randy Krishna MD Optical Dispenser: Juan Harden, JAKUB, RT Attending Provider: Saritha Swanson DO Referring Physician: Erendira LEWIS; Exam Type: CA echo dop color flow w con Study Info Indications I21.4 - Non-ST elevation (NSTEMI) myocardial infarction Complete two-dimensional, color flow and Doppler transthoracic echocardiogram is performed with contrast to opacify the left ventricle and to improve the deliniation of the left ventricle endocardial borders. Summary 1. Left ventricular chamber dimension is normal. 2. Left ventricular systolic function is normal, estimated at 55-60% with hypokinesis of the apical septal wall.. 3. There is mildly increased left ventricular wall thickness. 4. The left ventricular diastolic function is normal. 5. Technically difficult study with limited views. 6. There is trace mitral valve regurgitation. 7. There is mild tricuspid valve regurgitation. 8. No pulmonary hypertension, estimated pulmonary arterial systolic pressure is 32 mmHg. Left Ventricle Left ventricular chamber dimension is normal. Left ventricular systolic function is normal, estimated at 55-60% with hypokinesis of the apical septal wall.. There is mildly increased left ventricular wall thickness. The left ventricular diastolic function is normal. Technically difficult study with limited views. Right Ventricle Right ventricular chamber dimension is normal. Right ventricular systolic function is normal. Left Atria Left atrial chamber dimension is mildly enlarged. Right Atria Right atrial chamber dimension is normal. Aortic Valve The aortic valve is not well visualized. There is no aortic valve stenosis. There is no aortic valve regurgitation. Pulmonic Valve The pulmonic valve is not well visualized. There is trace pulmonic regurgitation. Mitral Valve The mitral valve has normal leaflets. There is trace mitral valve regurgitation. Tricuspid Valve The tricuspid valve leaflets are normal. There is mild tricuspid valve regurgitation. No pulmonary hypertension, estimated pulmonary arterial systolic pressure is 32 mmHg. Pericardium/Pleural The pericardium appears normal. There is no pericardial effusion. Aorta The aortic root size at the sinus of Valsalva is normal. There is mild aortic atherosclerosis. Left Ventricular Outflow Tract Name Value Normal LVOT 2D LVOT Diameter 1.98 cm LVOT Doppler LVOT Peak Gradient 3 mmHg LVOT Mean Gradient 2 mmHg LVOT VTI 16.75 cm LVOT VTI/AV VTI Ratio 0.76 LVOT Stroke Volume 51.66 ml LVOT CO 4.33 l/min LVOT CI 1.80 L/min/m2 Alfreda
--- NOTE | 2022-02-15 11:36 | PM.PNCARD ---
Progress Note: A&P Assessment and Plan (1) Non-ST elevation SD (NSTEMI): Code(s): I21.4 - Non-ST elevation (NSTEMI) myocardial infarction Status: Acute Assessment and Plan: Status post drug-eluting stent to LAD for 99% stenosis with good outcome. Patient feeling much better. LV dysfunction EF 35% noted on left ventriculography. Continue ARB, beta-brisa therapy. Discussed and counseled the absolute importance of compliance with aspirin and clopidogrel to avoid risk for stent thrombosis and acute myocardial infarction and/or . Patient verbalized understanding and agreed. Continue statin therapy. Outpatient cardiac rehab in 1 month. Will review 2D echocardiogram available. If patient ambulating without great difficulty and otherwise hemodynamically stable anticipate discharge home later today. Follow-up in 1 month. Patient verbalized understanding and agreed with plan of care. All questions answered to his satisfaction. 2D echocardiogram pending. Recommendations after review. (2) Severe uncontrolled hypertension: Code(s): I10 - Essential (primary) hypertension Status: Acute Assessment and Plan: Improved but with suboptimal control. Add losartan 25 mg daily, continue carvedilol. (3) Continuous tobacco abuse: Code(s): Z72.0 - Tobacco use Status: Acute Assessment and Plan: Smoking cessation counseling performed (4) COPD exacerbation: Code(s): J44.1 - Chronic obstructive pulmonary disease with (acute) exacerbation Status: Acute Assessment and Plan: Per primary service. Bronchodilator therapy. (5) Acute kidney injury: Code(s): N17.9 - Acute kidney failure, unspecified Status: Acute Assessment and Plan: Resolved since presentation. Continue monitor closely. Likely secondary to degree of intravascular volume depletion. Subjective Date/time seen: Date of service: 02/15/22 11:36 Follow-up for NSTEMI, PCI Patient feeling better today. States he he is annoyed as he did not sleep well due to frequent interruptions. No significant chest pain, shortness of breath improved. No dizziness. Patient was on the phone with his mother who also listen to our conversation. Review of Systems Review of Systems: All systems reviewed & are unremarkable except as noted in HPI and below Constitutional: Constitutional: Reports as per HPI and Reports no additional constitutional complaints Eyes: Eyes: Reports as per HPI and Reports no additional eye complaints ENT: Reports system reviewed and no additional complaints, except as documented and Reports as per HPI Cardiovascular: Cardiovascular: Reports as per HPI and Reports no additional cardiovascular complaints Respiratory: Respiratory: Reports as per HPI and Reports no additional respiratory complaints Gastrointestinal: Gastrointestinal: Reports as per HPI and Reports no additional gastrointestinal complaints Genitourinary: Genitourinary: Reports no additional male genitourinary complaints and Reports as per HPI Musculoskeletal: Musculoskeletal: Reports no additional musculoskeletal complaints and Reports as per HPI Integumentary/Breasts: Skin/Breast: Reports system reviewed and no additional complaints, except as docu and Reports as per HPI Neurologic: Reports system reviewed and no additional complaints, except as documented and Reports as per HPI Psychiatric: Psychiatric: Reports no additional psychiatric complaints and Reports as per HPI Endocrine: Endocrine: Reports no additional endocrine complaints and Reports as per HPI Hematologic/Lymphatic: Hematologic/Lymphatic: Reports no additional hematologic/lymphatic complaints and Reports as per HPI Allergic/Immunologic: Allergic/Immunologic: Reports no additional allergic/immunologic complaints and Reports as per HPI Exam Narrative: General: Obese, male, Well developed, alert and oriented x3. No apparen
[2022-02-15] MEDS: LOSARTAN POTASSIUM 25 MG TABLET PO (13:30)
[2022-02-15] MEDS: ALBUTEROL SULFATE NEB 2.5 MG/0.5 ML INH (14:16)
--- NOTE | 2022-02-15 14:41 | PM.DS ---
DS: Admitting Diagnosis Discharge Date 02/15/2022 1442 Admitting Diagnosis Chest pain DS: Discharge Diagnosis Discharge Diagnosis (1) Non-ST elevation [place] (NSTEMI): Code(s): I21.4 - Non-ST elevation (NSTEMI) myocardial infarction Status: Acute (2) Dyspnea and respiratory abnormalities: Code(s): R06.00 - Dyspnea, unspecified; R06.89 - Other abnormalities of breathing Status: Acute Assessment and Plan: Presumed COPD exacerbation. (3) Severe uncontrolled hypertension: Code(s): I10 - Essential (primary) hypertension Status: Acute (4) Acute kidney injury: Code(s): N17.9 - Acute kidney failure, unspecified Status: Acute (5) Elevated d-dimer: Code(s): R79.89 - Other specified abnormal findings of blood chemistry Status: Acute (6) Continuous tobacco abuse: Code(s): Z72.0 - Tobacco use Status: Chronic DS: Summary Hospital Course Reason for hospitalization: Chest pain Hospital Course: Jagjit Smith is a 51-year-old male with past medical history of hyperlipidemia, hypertension, tobacco use, as well as former meth and alcohol use who presented to the ER with chest pain.? Patient reported that the symptoms started the night before admission.? The pain was in the central chest and radiated around to the left chest in ribcage.? 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 He also reports prior numerous rib fractures on the left side and thought that it could be due to old scarring had from prior rib fractures.? His symptoms persisted and he decided to come to the ER.? His pain was aching in nature with occasional episodes of sharp and stabbing.? The pain waxed and waned. The pain radiated through to the back.? He has been accompanied by some diaphoresis.? The pain was accompanied by a heaviness in his chest, like he is mountain climbing and cannot catch his breath.? His he has had 1-2 weeks of increased wheezing.? He has had 1 week of increased cough.? He reports that his sputum is always black to green in color.? He used to smoke 3 packs of cigarettes per day but has cut down to 1 pack of cigarettes per day over the last year.? He does have a known history of hypertension but has not been taking any antihypertensives for quite some time.? When he arrived to the ER his blood pressure was markedly elevated into the 190/120 range.? He denies any lower extremity edema.? He has been having some orthopnea.? His pain is made worse with deep breathing and coughing.? He denies any fevers or chills.? He received his initial COVID vaccines years but has not had his booster.? He reports that his urine has been darker than usual but he assumed that this was due to being dehydrated from working outside in the heat.? He admits that he does not choose the best oral intake for hydration purposes.? The patient was referred for observation and monitored on telemetry. Cardiac enzymes were obtained and trended up to 3.19. Cardiology was consulted patient underwent cardiac catheterization showing severe single-vessel coronary artery disease with 99% stenosis seen in the LAD after the major diagonal origin seen.?He was pretreated with PO prednisone and benadryl due to his contrast allergy. It was successfully treated with the croboiro drug-eluting stent. He was started on aspirin 81 mg daily, plavix 75 mg daily, lipitor 80 mg daily, and beta-brisa therapy. Losartan 25 mg was added prior to discharge. Echocardiogram was obtained showing normal LV function and EF 55-60%. VQ scan was intermediate risk for PE. CTA chest was obtained to rule out PE and was negative. He also reported prior concern for pulmonary nodule he was instructed to have biopsied over 1 year ago, to which he never received follow-up. This was noted following his rib fractures at [facility]. No pulmonary nodule was noted on CT scan today. He was instructed to quit smoking and to discuss lung
--- NOTE | 2022-02-15 17:25 | PC.NURSE ---
Discharged home- instructions given to pt - verbalized wound care and discharge instructions-
== END 2022-02-15 17:22 | disposition home or self-care (01) | DRG 174 ==
LOC: ANHED 02-14 02:18 → ANHIMU 02-14 03:41
PROVIDERS: Specialist; Admitting Provider Internal Medicine; Emergency Provider Emergency Medicine; PCP Family Medicine; Visit Provider Nurse Practitioner Family
PROC: 4A023N7 Measurement of Cardiac Sampling and Pressure, Left Heart, Percutaneous Approach (ICD-10-PCS; CPT 93452; principal; 2022-02-14 13:00)
PROC: 027034Z Dilation of Coronary Artery, One Artery with Drug-eluting Intraluminal Device, Percutaneous Approach (ICD-10-PCS; 2022-02-14 13:00)
DX: I21.4 Non-ST elevation (NSTEMI) myocardial infarction (principal); I25.10 Atherosclerotic heart disease of native coronary artery without angina pectoris; N17.9 Acute kidney failure, unspecified; Z20.822 Contact with and (suspected) exposure to COVID-19; E86.0 Dehydration; I10 Essential (primary) hypertension; R79.89 Other specified abnormal findings of blood chemistry; J44.1 Chronic obstructive pulmonary disease with (acute) exacerbation; E78.5 Hyperlipidemia, unspecified; K21.9 Gastro-esophageal reflux disease without esophagitis; M17.11 Unilateral primary osteoarthritis, right knee; F17.210 Nicotine dependence, cigarettes, uncomplicated; M17.0 Bilateral primary osteoarthritis of knee; G47.33 Obstructive sleep apnea (adult) (pediatric); E66.9 Obesity, unspecified; Z68.36 Body mass index [BMI] 36.0-36.9, adult
CPT/HCPCS: 36415; 71046; 71275; 78580; 80048; 80053; 80061; 82550; 83690; 83880; 84484; 85025; 85027; 85380; 85610; 85730; 93005; 93458; 94640; 96372; 96374; 96375; 99285; A9270; A9540; C1725; C1769; C1874; C1887; C1894; C8929; C9600; C9803; G0379; J0360; J0583; J1644; J1650; J1940; J2250; J2270; J3010; J7030; J7040; J7512; Q9957; Q9967; U0003; U0005

== ENCOUNTER 2022-05-17 15:00 | Outpatient (RCR) | payer OTHER, SELFPAY ==
[2022-04-20 15:05] VITALS: PULSE 82
== END 2022-06-14 15:30 | disposition home or self-care (01) ==
LOC: ANHCPREHAB 15:00
PROVIDERS: PCP Family Medicine; Visit Provider Internal Medicine Cardiovascular Disease
DX: Z95.5 Presence of coronary angioplasty implant and graft (principal); I25.2 Old myocardial infarction
CPT/HCPCS: 93798

== ENCOUNTER 2023-11-20 09:27 | Outpatient (CLI) | payer OTHER, SELFPAY ==
--- NOTE | ~2023-11-20 | CT_ITS ---
EXAMINATION: CTA chest DATE: 11/20/2023 10:09 INDICATION: Coronary artery disease. TECHNIQUE: Computed tomographic angiography (CTA) of the chest was performed with 100 mL Omnipaque-35 0 intravenous contrast. Automated exposure control and iterative reconstruction technique were employ ed. The dose-length product was 1082.74 mGy-cm. Maximum intensity projection 3D-reconstructions of th e aorta and other arteries were constructed by the technologist on a separate workstation. COMPARISON: Chest CT 02/15/2022 FINDINGS: There is mild emphysema. There is mild atelectasis bilaterally. The heart size is normal. T here are coronary artery calcifications. There is ectasia of ascending aorta measuring 4.0 cm. There are cysts in the kidneys measuring up to 2.1 cm on the right. There is mild thoracic spondylosis. The re is mild chronic anterior wedging of multiple vertebral bodies. IMPRESSION: 1. Ectasia of ascending aorta measuring 4.0 cm. 2. Mild emphysema. Reviewed, dictated and finalized at location A.
[2023-11-20 09:59] LABS: Estimated Glomerular Filt Rate > 60
[2023-11-20 11:58] LABS: Basophils Percent Auto 0.3 % (0.2-1.2); Eosinophils Absolute Auto 0.2 K/mm3 (0-0.3); Eosinophils Percent Auto 1.5 % (0-4.4); Hemoglobin 15.6 g/dL (14.0-18.0); Immature Granulocyte Absolute 0.05 K/mm3 (0.00-0.031); Immature Granulocyte Percent A 0.4 % (0-0.5); Lymphocytes Absolute Auto 2.73 K/mm3 (0.9-3.2); Lymphocytes Percent Auto 22.2 % (18.3-44.2); Mean Corpuscular HGB Conc 31.8 g/dl (32-36); Mean Corpuscular Hemoglobin 29.1 pg (26-34); Mean Corpuscular Volume 91.4 fl (80-100); Mean Platelet Volume 11.3 fl (7.4-10.4); Monocytes Absolute Auto 0.8 K/mm3 (0.1-0.6); Monocytes Percent Auto 6.3 % (2.6-8.5); Neutrophils Absolute Auto 8.6 K/mm3 (1.3-6.7); Neutrophils Percent Auto 69.3 % (45.5-73.1); Platelet Count Result 231 k/mm3 (150-375); Red Blood Count 5.36 M/mm3 (4.6-6.20); Red Cell Distribution Width 14.2 % (11.5-14.5); White Blood Count 12.3 K/mm3 (4.5-10.0)
[2023-11-20 12:10] LABS: Anion Gap 5 mmol/L (4-12); Blood Urea Nitrogen 20 mg/dL (9-20); Calcium 9.2 mg/dL (8.4-10.2); Carbon Dioxide 25 mmol/L (22-30); Chloride 106 mmol/L (98-107); Estimated Glomerular Filt Rate > 60; Glucose 97 mg/dL (65-110); Potassium 4.1 mmol/L (3.4-5.0); Sodium 136 mmol/L (137-145)
== END 2023-11-20 09:28 | disposition home or self-care (01) ==
PROVIDERS: PCP Family Medicine; Visit Provider Internal Medicine Cardiovascular Disease
DX: I25.10 Atherosclerotic heart disease of native coronary artery without angina pectoris (principal); I71.21 Aneurysm of the ascending aorta, without rupture; J43.9 Emphysema, unspecified; I10 Essential (primary) hypertension
CPT/HCPCS: 36415; 71275; 80048; 85025; Q9967

== ENCOUNTER 2024-02-04 09:53 | Outpatient (CLI) | payer OTHER, SELFPAY ==
[2024-02-04 11:02] LABS: Basophils Percent Auto 0.3 % (0.2-1.2); Eosinophils Absolute Auto 0.1 K/mm3 (0-0.3); Eosinophils Percent Auto 1.4 % (0-4.4); Hematocrit 46.2 % (42.0-52.0); Immature Granulocyte Absolute 0.04 K/mm3 (0.00-0.031); Immature Granulocyte Percent A 0.4 % (0-0.5); Lymphocytes Absolute Auto 2.33 K/mm3 (0.9-3.2); Lymphocytes Percent Auto 24.1 % (18.3-44.2); Mean Corpuscular HGB Conc 32.5 g/dl (32-36); Mean Corpuscular Hemoglobin 29.5 pg (26-34); Mean Corpuscular Volume 90.8 fl (80-100); Monocytes Absolute Auto 0.7 K/mm3 (0.1-0.6); Monocytes Percent Auto 7.2 % (2.6-8.5); Neutrophils Absolute Auto 6.4 K/mm3 (1.3-6.7); Neutrophils Percent Auto 66.6 % (45.5-73.1); Platelet Count Result 240 k/mm3 (150-375); Red Blood Count 5.09 M/mm3 (4.6-6.20); Red Cell Distribution Width 13.9 % (11.5-14.5); White Blood Count 9.7 K/mm3 (4.5-10.0)
[2024-02-04 11:23] LABS: Alanine Aminotransferase 21 U/L (6-50); Alkaline Phosphatase 112 U/L (38-126); Anion Gap 3 mmol/L (4-12); Aspartate Amino Transferase 25 U/L (17-59); Bilirubin,Total 0.7 mg/dL (0.2-1.3); Blood Urea Nitrogen 16 mg/dL (9-20); Calcium 8.9 mg/dL (8.4-10.2); Carbon Dioxide 27 mmol/L (22-30); Chloride 108 mmol/L (98-107); Cholesterol 116 mg/dL (0-200); Estimated Glomerular Filt Rate > 60; Glucose 93 mg/dL (65-110); HDL Direct 32 mg/dL; Potassium 4.3 mmol/L (3.4-5.0); Sodium 138 mmol/L (137-145); Triglycerides 109 mg/dL (<150)
[2024-02-04 11:34] LABS: LDL Cholesterol Direct 70 mg/dL
[2024-02-04 11:42] LABS: Free T4 Free Thyroxine 0.98 ng/mL (0.78-2.19)
[2024-02-04 11:49] LABS: Thyroid Stimulating Hormone 0.888 uIU/mL (0.465-4.680)
[2024-02-04 12:37] LABS: Hemoglobin A1C 5.9 % (<5.7)
[2024-02-04 16:52] LABS: Total Triiodothyronine (T3) 1.22 NG/ML (0.97-1.69)
== END 2024-02-04 09:54 | disposition home or self-care (01) ==
PROVIDERS: PCP Family Medicine; Visit Provider Family Medicine
DX: E78.5 Hyperlipidemia, unspecified (principal); I10 Essential (primary) hypertension; R53.83 Other fatigue; R73.01 Impaired fasting glucose
CPT/HCPCS: 36415; 80053; 80061; 83036; 84439; 84443; 84480; 85025

== ENCOUNTER 2024-03-19 15:46 | Emergency (ER) | payer OTHER, SELFPAY ==
--- NOTE | ~2024-03-19 | CT_ITS ---
EXAMINATION: CTA chest abdomen pelvis DATE: 03/19/2024 17:10 INDICATION: known aneurysm, back pain . TECHNIQUE: Computed tomography (CT) of the chest, abdomen, and pelvis was performed with 100 mL Omnip aque-350 intravenous contrast in the arterial phase. Automated exposure control and iterative reconst ruction technique were employed. The dose-length product was 1958.62 mGy-cm. COMPARISON: CTA chest 11/20/2023; CT abdomen pelvis 12/05/2017 FINDINGS: CHEST: Thoracic aorta: Ectatic ascending aorta measuring 4.0 cm, stable. No dissection. Lung parenchyma and airways: Lungs and airways are clear. Thoracic inlet, axillae and chest wall: No thyroid or soft tissue mass. No axillary lymphadenopathy. Mediastinum: No mass or lymphadenopathy. Heart and pericardium: Normal heart size. No pericardial effusion. Coronary artery calcifications: Mild. Pleura: No effusion or mass. Thoracic bones: No acute osseous finding in the chest. ABDOMEN/PELVIS: Liver: Tiny subcentimeter hypodensity, likely cyst or hemangioma at the liver dome. Biliary/Gallbladder: Gallbladder is normal. No bile duct dilation. Pancreas: No mass or duct dilation. Spleen: Normal. Adrenals:No mass. Kidneys: No suspicious mass, obstructing stone, or hydronephrosis. Simple right upper pole cyst. Mult iple bilateral hypodensities, too small to characterize but most likely represent cysts. GI tract: No small or large bowel dilation. Normal appendix. Diverticulosis without diverticulitis. Mesentery/Peritoneum: No ascites, mass, or free air. Retroperitoneum: No mass . Mild atherosclerotic abdominal aortic and/or arterial calcifications. No a neurysm, dissection, occlusion, or severe major aortic branch vessel stenosis. Pelvis: Pelvic organs are within normal limits Soft Tissues: Soft tissues and body wall unremarkable. Abdominopelvic bones: No acute osseous finding in the abdomen/pelvis. IMPRESSION: No acute process detected in the chest, abdomen, or pelvis. Stable mild ascending thoracic aortic ectasia. Reviewed, dictated and finalized at location K.
--- NOTE | 2024-03-19 16:01 | ECG_ITS ---
Test Date: 2024-03-19 16:04:17 Measurements Intervals [place] Rate: 66 P: 65 [place]: 152 QRS: 60 QRSD: 85 T: 100 QT: 396 QTc: 416 Interpretive Statements SINUS RHYTHM ST-T WAVE ABNORMALITY IN HIGH LATERAL LEADS- CONSIDER ISCHEMIA ABNORMAL ECG No previous ECG available for comparison Electronically Signed On 03-19-2024 16:56:20 CDT by Cristhian Pineda D.O.
[2024-03-19 16:13] VITALS: BP 149/77; PULSE 73; RESP 15; TEMP 36.6; O2SAT 97
--- NOTE | 2024-03-19 16:25 | ED.BACK ---
HPI - Back Pain/Injury General Chief Complaint: Back Pain/Injury Stated Complaint: patient sent to the ED for back pain X2 days Time Seen by Provider: 03/19/24 15:56 Source: patient Mode of arrival: ambulatory Limitations: no limitations History of Present Illness HPI Narrative: this is a 53-year-old male with PMH of TAA, NSTEMI, HTN, COPD, s/p cardiac stent who presents to the ED with interscapular pain for the past 1-2 days. Patient reports history of aortic aneurysm that was found in 2021 and he was told by his doctors to go to the ER for this pain. Reports the pain somewhat radiates into the left side of the back. Denies any exertional component to the pain. States that he went out to get coffee yesterday but did not have any other increased activity. Does admit to still smoking cigarettes. Denies chest pain, shortness of breath or cough. Denies fevers, chills, syncope, lightheadedness, numbness or weakness of the extremities. Related Data Home Medications Medication Instructions Recorded Confirmed losartan 25 mg tablet 50 mg PO DAILY 04/20/22 04/20/22 metoprolol succinate 25 mg 50 mg PO DAILY 04/20/22 04/20/22 tablet,extended release 24 hr (Toprol XL) Allergies Allergy/AdvReac Type Severity Reaction Status Date / Time milk Allergy Mild Unknown Verified 03/19/24 15:46 povidone-iodine Allergy Unknown RASH Verified 03/19/24 15:46 Review of Systems Review of Systems: All systems as dictated in HPI [facility] Past Medical History Medical History Continuous tobacco abuse Degenerative arthritis of knee, bilateral Essential hypertension GERD (gastroesophageal reflux disease) Hyperlipidemia Obstructive sleep apnea Osteoarthritis of right knee Surgical History Surgical History H/O knee surgery R knee scope, medial and lateral meniscus, 2016 Dr. Connell History of tonsillectomy and adenoidectomy (06/2014) Complicated by postop hemorrhage requiring for additional surgeries History of umbilical hernia repair (08/2009) Family History Family History (Updated 04/20/22 @ 15:10 by Claudine Camacho RN) Mother Osteoarthritis Breast cancer Hypertension Father , At age 66 Small cell lung cancer Hypertension Social History Social History Social History: The patient lives in [place] with his of 17 years. He has 2 biological children I does not have much contact with. He has raised 6 step children and 2 foster children. His is currently with a baby after 17 years of trying. He has smoked as much as 3 packs of cigarettes per day but cut down to 1 pack of cigarettes per day last year. He used to drink 2 pint of hard liquor a day but quit drinking 2 months ago. He used to smoke methamphetamines but quit in 2004. He still smokes marijuana on occasion. 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 HEAD: Normocephalic, atraumatic. EYES: PERRLA and EOMI. ENT: Nares clear, no rhinorrhea or epistaxis. Mucous membranes moist. Oropharynx without tonsillar hypertrophy exudate or other lesions. NECK: Supple. No adenopathy or masses. CHEST: No respiratory distress. Clear to auscultation. No wheezes rales or rhonchi HEART: Regular rate and rhythm. No murmur heard. Normal pe
[2024-03-19 16:34] LABS: Basophils Percent Auto 0.3 % (0.2-1.2); Eosinophils Absolute Auto 0.2 K/mm3 (0-0.3); Eosinophils Percent Auto 2.3 % (0-4.4); Hematocrit 47.7 % (42.0-52.0); Hemoglobin 15.6 g/dL (14.0-18.0); Immature Granulocyte Absolute 0.03 K/mm3 (0.00-0.031); Immature Granulocyte Percent A 0.3 % (0-0.5); Lymphocytes Absolute Auto 2.92 K/mm3 (0.9-3.2); Lymphocytes Percent Auto 30.2 % (18.3-44.2); Mean Corpuscular HGB Conc 32.7 g/dl (32-36); Mean Corpuscular Hemoglobin 29.9 pg (26-34); Mean Corpuscular Volume 91.4 fl (80-100); Mean Platelet Volume 11.4 fl (7.4-10.4); Monocytes Absolute Auto 0.5 K/mm3 (0.1-0.6); Monocytes Percent Auto 5.6 % (2.6-8.5); Neutrophils Absolute Auto 5.9 K/mm3 (1.3-6.7); Neutrophils Percent Auto 61.3 % (45.5-73.1); Platelet Count Result 224 k/mm3 (150-375); Red Blood Count 5.22 M/mm3 (4.6-6.20); Red Cell Distribution Width 14.2 % (11.5-14.5); White Blood Count 9.7 K/mm3 (4.5-10.0)
[2024-03-19 16:43] LABS: Prothrombin Time 13.7 Seconds (11.1-14.7)
[2024-03-19 16:44] LABS: Partial Thromboplastin Time 28.6 Seconds (22.3-36.8)
[2024-03-19 16:46] LABS: Alanine Aminotransferase 31 U/L (6-50); Albumin Level 4.3 g/dL (3.5-5.1); Alkaline Phosphatase 122 U/L (38-126); Anion Gap 9 mmol/L (4-12); Aspartate Amino Transferase 28 U/L (17-59); Bilirubin,Total 0.5 mg/dL (0.2-1.3); Blood Urea Nitrogen 15 mg/dL (9-20); CRP < 0.5 mg/dL (<1.0); Carbon Dioxide 26 mmol/L (22-30); Chloride 102 mmol/L (98-107); Estimated CRCL calculation 92 ml/min; Estimated Glomerular Filt Rate > 60; Glucose 128 mg/dL (65-110); Sodium 137 mmol/L (137-145)
[2024-03-19 16:55] LABS: Troponin I < 0.012 ng/mL (0.000-0.034)
[2024-03-19] MEDS: MORPHINE SULFATE (*CRX) 4 MG/ML INJ IV PUSH (17:14)
[2024-03-19] MEDS: ONDANSETRON INJ 4 MG/2 ML VIAL IV PUSH (17:14)
== END 2024-03-19 18:06 | disposition home or self-care (01) ==
PROVIDERS: Emergency Provider Physician Assistant; PCP Family Medicine
DX: M54.9 Dorsalgia, unspecified (principal); I25.2 Old myocardial infarction; I10 Essential (primary) hypertension; J44.9 Chronic obstructive pulmonary disease, unspecified; E78.5 Hyperlipidemia, unspecified; F17.210 Nicotine dependence, cigarettes, uncomplicated
CPT/HCPCS: 36415; 71275; 74174; 80053; 84484; 85025; 85610; 85730; 86140; 93005; 96374; 96375; 99284; J2270; J2405; Q9967

== ENCOUNTER 2025-02-25 13:31 | Outpatient (CLI) | payer OTHER, SELFPAY ==
--- NOTE | ~2025-02-25 | CT_ITS ---
CT Scan of the Chest without Contrast: Clinical Indication: Lung cancer screening, nicotine dependence Technique: Contiguous sections were acquired throughout the chest without intravenous contrast. Dose reduction technique was used on this scan by utilizing automated exposure control and iterative recon struction technique. The dose-length product (DLP) was 437.09 mGy-cm. COMPARISON: 03/19/2024 Findings: There is no evidence of any significant mediastinal, hilar or axillary lymphadenopathy. Coronary kelsie ry calcifications are present. There is no evidence of pleural or pericardial effusion. The lungs are clear. No pulmonary nodules or infiltrates are noted. Images through the upper abdomen reveal no abnormalities. Impression: Lung RADS 1: Negative. 12 month follow-up screening CT advised. Reviewed, dictated and finalized at location . Impression: Lung RADS 1: Negative. 12 month follow-up screening CT advised.
--- OUTSIDE RECORDS SUMMARY | 2025-02-25 13:35 | XMS_ITS | Clinical Summary ---
Author Organization [facility] [address] [place] [id number] Care Team Providers Care Pharmacy Informatics Specialist Name Role Phone Isaías Marin MD Primary Care Provider [phone] Allergies Active Allergy Reactions Criticality Noted Date Comments Povidone-Iodine Rash,Other (See comments) Medium 02/23 Reaction: Medications acetaminophen 500 mg capsule Take 2 capsules (1,000 mg total) by mouth every 6 (six) hours 30 tablet 1 Active albuterol HFA (PROVENTIL HFA,VENTOLIN HFA,PROAIR HFA) 90 mcg/actuation inhaler 2 Active aspirin 81 mg enteric coated tablet Take 1 tablet (81 mg total) by mouth daily Active nitroglycerin (NITROSTAT) 0.4 mg SL tablet ONE TABLET UNDER TONGUE NEEDED FOR CHEST PAIN.MAY REPEAT IN 5 MINUTES FOR QA TOTAL OF 3 TIMES. IF CHEST PAIN PERSISTS, CALL 911. 25 tablet 3 Active losartan (COZAAR) 100 mg tabletIndicati ons:Coronary artery disease involving seneca coronary artery of seneca heart without angina pectoris Take 1 tablet (100 mg total) by mouth daily 90 tablet 3 4 Active atorvastatin (LIPITOR) 80 mg tabletIndicati ons:Coronary artery disease involving seneca coronary artery of seneca heart without angina pectoris TAKE 1 TABLET(80 MG) BY MOUTH DAILY 90 tablet 3 4 Active metoprolol XL (TOPROL-XL) 50 mg extended release tabletIndicati ons:Coronary artery disease of seneca artery of seneca heart with stable angina pectoris TAKE 1 TABLET(50 MG) BY MOUTH DAILY 90 tablet 3 4 Active cyclobenzaprin e (FLEXERIL) 10 mg tablet Take 1 tablet (10 mg total) by mouth 5 Active amLODIPine (NORVASC) 5 mg tablet TAKE 1 TABLET(5 MG) BY MOUTH DAILY 30 tablet 7 5 Active amLODIPine (NORVASC) 5 mg tablet Take 1 tablet (5 mg total) by mouth daily 30 tablet 11 4 025 Discontinued Active Problems Problem Noted Date Diagnosed Date Hypersomnolence 11/05/2024 Chest pressure 11/05/2024 Severe obesity 11/05/2024 Morbid (severe) obesity due to excess calories 0 10/19/2022 Body mass index 40.0-44.9, adult (CMS/HCC) 10/19 Mixed hyperlipidemia 06/15/2022 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 (due 02/2022) Acute traumatic pain 02/25/2021 Constipation due to opioid therapy 02/25/2021 Falling, in, on, stairs, initial encounter 02/25 Alcohol abuse 02/25/2021 Fracture four ribs-closed, left, initial encount er 02/24/2021 Primary hypertension 09/26/2020 Assessment & Plan (09/26/2020 11:50 AM UNDERWRITING ASSISTANT): Patient's blood pressure still require some additional alteration. Eventually I would like to get away from the clonidine because of its side effect profile. Today I have added a minoxidil 5 mg p.o. b.i.d.. If his blood pressure remains accelerated requiring a different treatment the addition of chlorthalidone 25 mg daily could be considered. He will need some blood work including proBNP and metabolic panel in light of his combination of Gabriel and spironolactone. I will tentatively review his blood pressure log in 2-3 months. Class 3 severe obesity due t o excess calories with serious comorbidity and body mass index (BMI) of 40.0 to 44.9 in adult 09/26/2020 Smoker 09/26/2020 Assessment & Plan (09/26/2020 11:49 AM UNDERWRITING ASSISTANT): The patient is trying nicotine replacement for smoking cessation. We will discuss further options in the future. Encounters Date Type Department Care Team Description 12/10/2024 Results Follow-Up [facility] Cardiology [address] [facility] [address] [place] [phone] Chuck Schwartz MD NM MPI SPECT (Rest and/or Stress) Multiple Studies 12/09/2024 8:15 AM CDT Ancillary Procedure [facility] Medical [facility] Cardiology [address] [place] [phone] Chest pressure; Coronary artery disease of seneca artery of seneca heart with stable angina pectoris from Last 3 Months Surgical History Surgery Date Site/Laterality Comments KNEE SURGERY Medical History Medical History Date Comments Hyperlipidemia Hypertension Family History Medical History Relation Name Comments Cancer Father Hypertension Father Cancer Father's Brother Hypertension Father's Brother Cancer Father's Sister Hypertension Father's Sister Cancer Mother Hypertension Mother Cancer Mother's Brother Hypertension Mother's Brother Cancer Mother's Sister Hypertension Mother's Sister Relation Name Status Comments Father Father's Brother Father's Sister Mother Mother's Brother Mother's Sister Social History Tobacco Use Types Packs/Day Years Used Date Smoking Tobacco: Every Day Cigarettes 1 30 Smokeless Tobacco: Never Tobacco Cessation:Ready to Q uit: Not Asked; Counseling Given: Not Answered Comments:was smoking 2 to 2 1/2 packs daily and is down to Alcohol Use Standard Drinks/Week Comments Never 0 (1 standard drink = 0.6 oz pur e alcohol) AUDIT-C Answer Date Recorded Q1: How often do you have a drink containing alc ohol? Patient declined 03/08/2021 Average Number of Drinks Not on file 021 Frequency of Binge Drinking Not on file 02/23 Sex and Gender Information Value Date Recorded Sex Assigned at Not on file Legal Sex Male 11:19 AM UNDERWRITING ASSISTANT Gender Identity Male 12/07/2024 8:04 PM CDT Sexual Orientation Not on file Obstetrics History Last Filed Vital Signs Vital Sign Reading Time Taken Comments Blood Pressure 126/82 11/05/2024 9:19 AM CDT Pulse 69 11/05/2024 9:19 AM CDT Temperature 36.6 C (97.8 F) 03/08/2021 9:13 AM CDT Respiratory Rate 18 03/08/2021 9:13 AM CDT Oxygen Saturation 95% 11/05/2024 9:19 AM CDT Inhaled Oxygen Concentration - - Weight 127.5 kg (281 lb) 11/05/2024 9:19 AM CDT Height 177.8 cm (5' 10) 11/05/2024 9:19 AM CDT Body Mass Index 40.32 11/05/2024 9:19 AM CDT Plan of Treatment Health Maintenance Due Date Last Done Comments Colon Cancer Screening-Colonoscopy 1972 Depression Screening 1972 Hepatitis C Screening 1972 Prostate Cancer Screening-PSA 1972 DTaP/Tdap/Td Vaccine (1 - Tdap) 1983 Hepatitis B Screening 1990 Regular Well Visit/Exam 18-64 1990 Pneumococcal vaccine <65 (1 of 2 - PCV) 1991 Lung Cancer Screening 2022 Zoster Vaccine (1 of 2) 2022 Covid-19 Vaccine (2 - season) 04/26/202405/2021 Influenza Vaccine (#1) 2025 Goals Goal Patient Goal Type Associated Problems Recent Progress Patient-Stated? Author CCM Hypertension Care Plan Chronic Care Management Marga Lynch, RN Note: Problem: Hypertension Goals: 1. Meet age adjusted blood pressure goals 2. Prevention of complications including eyes, kidneys blood vessels 3. Avoid low blood pressure/passing out 4. Improve medicine access and compliance Strategies: - DASH Diet education - Periodic phone call screening for development of vision changes, pain/fatigue associated with walking, near falls - Periodic phone calls to request blood pressure readings, frequency of missed medication doses, any side affects - Encourage regular MD visits and remind patient of importance of keeping upcoming appointments - Recommend healthy lifestyle strategies and compensatory methods as needed Procedures Procedure Name Priority Date/Time Associated Diagnosis Comments NM MPI SPECT (REST AND/OR STRESS) MULTIPLE STUDIES Schedule Routine, Read Routine (OP Routine) 12/09/2024 10:01 AM CDT Chest pressure Coronary artery disease of seneca artery of seneca heart with stable angina pectoris from Last 3 Months Results * NM MPI SPECT (Rest and/or Stress) Multiple Studies (12/09/2024 10:01 AM CDT) Anatomical Region Laterality Modality Body N/A Nuclear Medicine 12/09/2024 8:28 AM CDT Narrative 12/09/2024 4:17 PM CDT [facility] Medical Group Cardiology [address] [facility] [address] [place] [id number] [address] [facility] [address] [place], [place] [address] P:[phone] P:[phone] MPI Imaging Report Patient Name: PILY SMITH E : 1970 Study Date: 12/09/2024 8:28:21 AM Gender: M Tech: [facility] Location: [facility] Provider: CHUCK SCHWARTZ Height(Cm): 177.8 BSA: Weight(Kg): 127.5 BMI: 40.33 Order Provider: CHUCK SCHWARTZ PHYSICIAN: Referring Physician: Dr. Marin. HCG Physician: Terrance Schwartz M.D. Interpreting Physician: Terrance Schwartz M.D. Stress Supervision: Larry Corral M.D., F.A.C.C. PROCEDURES: Pharmacologic SPECT Report: Myocardial perfusion imaging with Tc99M Sestamibi SPECT at rest and stress post regadenoson (Lexiscan) infusion. INDICATIONS: Hypertension, Smoker, WHITESIDE, R07.89 Other chest pain, and I25.118 Atherosclerotic heart disease of seneca coronary artery with other forms of angina pectoris. FINDINGS: Procedural Findings: One day rest/stress was used. Tc99m Sestamibi injected IV at rest was 12.7 millicuries 36.8 millicuries of Tc99M Sestamibi injected IV during Lexiscan stress Lexiscan 0.4mg administered IV over 10 seconds. Patient had no symptoms during stress test. Baseline heart rate was 63 BPM Maximum Heart Rate Achieved was: 93 BPM Baseline blood pressure was 122/70 mmHg Post Stress Blood Pressure was 118/74 mmHg Termination: Protocol complete. Resting ECG: Sinus rhythm. Post ECG: Findings do not meet strict criteria for ischemia. Arrhythmia: No arrhythmias seen. Perfusion Findings: Normal perfusion imaging. No definite fixed or reversible defects. Technical quality of study is excellent. Prone imaging was not performed. Left ventricle cavity size at rest is normal. Left ventricle cavity size with stress is unchanged. A TID of 0.97 was automatically calculated. LV Function: Global left ventricular function is normal. Left ventricular ejection fraction is 70 %. CONCLUSIONS: EKG portion of the pharmacological stress test negative for ischemia. Correlate with SPECT. Global left ventricular function is normal. Left ventricular ejection fraction is 70 %. Myocardial perfusion imaging is probably normal. Basal inferior/inferoseptal defect is seen at both rest and stress which is likely related to gut attenuation. No clear evidence of ischemia. Electronically Signed By: Chuck Schwartz MD 12/09/2024 12:46:31 PM CDT Electronically Signed By: Larry Corral MD, [facility] 12/09/2024 4:17:08 PM CDT Procedure Note Larry Corral MD - 12/09/2024 [facility] Medical Group Cardiology [address] [facility] [address], [place] [address] [address] [facility] [address] [place] [address] P:[phone] P:[phone] MPI Imaging Report Patient Name: PILY SMITH E : 1970 Study Date: 12/09/2024 8:28:21 AM Gender: M Tech: [facility] Location: [facility] Provider: CHUKC SCHWARTZ Height(Cm): 177.8 BSA: Weight(Kg): 127.5 BMI: 40.33 Order Provider: CHUCK SCHWARTZ PHYSICIAN: Referring Physician: Dr. Marin. HCG Physician: Terrance Schwartz M.D. Interpreting Physician: Terrance Schwartz M.D. Stress Supervision: Larry Corral M.D., F.A.C.C. PROCEDURES: Pharmacologic SPECT Report: Myocardial perfusion imaging with Tc99M Sestamibi SPECT at rest and stresspost regadenoson (Lexiscan) infusion. INDICATIONS: Hypertension, Smoker, WHITESIDE, R07.89 Other chest pain, and I25.118Atherosclerotic heart disease of seneca coronary artery with other forms of angina pectoris. FINDINGS: Procedural Findings: One day rest/stress was used. Tc99m Sestamibi injected IV at rest was 12.7 millicuries 36.8 millicuries of Tc99M Sestamibi injected IV during Lexiscan stress Lexiscan 0.4mg administered IV over 10 seconds. Patient had no symptoms during stress test. Baseline heart rate was 63 BPM Maximum Heart Rate Achieved was: 93 BPM Baseline blood pressure was 122/70 mmHg Post Stress Blood Pressure was 118/74 mmHg Termination: Protocol complete. Resting ECG: Sinus rhythm. Post ECG: Findings do not meet strict criteria for ischemia. Arrhythmia: No arrhythmias seen. Perfusion Findings: Normal perfusion imaging. No definite fixed or reversible defects.Technical quality of study is excellent. Prone imaging was not performed. Left ventricle cavitysize at rest is normal. Left ventricle cavity size with stress is unchanged. A TID of0.97 was automatically calculated. LV Function: Global left ventricular function is normal. Left ventricular ejectionfraction is 70 %. CONCLUSIONS: EKG portion of the pharmacological stress test negative for ischemia.Correlate with SPECT. Global left ventricular function is normal. Left ventricular ejectionfraction is 70 %. Myocardial perfusion imaging is probably normal. Basalinferior/inferoseptal defect is seen at both rest and stress which is likely related to gut attenuation.No clear evidence of ischemia. Electronically Signed By: Chuck Schwartz MD 12/09/2024 12:46:31 PM CDT Electronically Signed By: Larry Corral MD, [facility] 12/09/2024 4:17:08 PM CDT Chuck Schwartz MD IMG NM PROCEDURES Final R esult from Last 3 Months Insurance [facility] [employer] Advance Directives For more information, please contact: [phone] * Full Code (Latest Code Status on File) Date Activated Date Inactivated Comments 02/23/2021 1:47 AM 02/25/2021 6:15 PM Care Teams Pharmacy Informatics Specialist Relationship Specialty Start Date End Date Isaías Marin MD PCP - General Family Medicine 09/16/20
--- OUTSIDE RECORDS SUMMARY | 2025-02-25 13:35 | XMS_ITS | Continuity of Care Document ---
Author Organization [facility] Address [address] [place] [address] [place] [address] Phone Care Team Providers Care Recycling Manager Name Role Phone Clara Jones Unavailable Unavailable Procedures Procedure Date Office/outpatient Visit, [facility] Office/outpatient Visit, [facility] Advance Directives Directive Yes / No Effective Date File Name No Information Encounters Encounter Description Practice Location Reason(s) For Visit Diagnoses Date Provider Providers Copied on Encounter Office/[place]pat ient [place], [facility] [place] [address] [place] [address] [address], [place], [place], [id number], tel:[phone] [facility] No Information 0 Karen Elizabeth. [address] [facility] , [address], [place], [address], [place]. tel:[phone] Office/outpat ient Visit, [facility], [address] [place] [address] [address], [place], [place], [id number], tel:[phone] [facility] No Information 0 Linda Pearce. [address] [facility] , [address], [place], [address], [place]. tel:[phone] Family History Family Member Type Diagnosis Age At Onset No Information Payers Payer name Insurance type Covered democrat ID [id number] [id number](s) [employer] [id number] Social History Type Description Quantity Date Captured [...]
--- OUTSIDE RECORDS SUMMARY | 2025-02-25 13:35 | XMS_ITS | Clinical Summary ---
Author Organization [facility] Address [address] [place] [address] Care Team Providers Care Motor Vehicles Supervisor Name Role Phone Isaías Marin MD Primary Care Provider Source Comments [facility] [employer],non-owned Affiliates and Associated Physician Practices is amultiple site organization consisting of ambulatory clinics and hospital sitesin [place], [place], [place]. This disclosure is being madepursuant to the Care Everywhere program and may not contain all information available regarding this patient. 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 Gender Identity Not on file Sexual Orientation Not on file Plan of Treatment Health Maintenance Due Date Last Done Comments COLOGUARD (AGES 45-75) - COL ON CA SCREENING 1972 COLON MONITORING 1972 COLONOSCOPY - COLON CA SCREENING 1972 CT COLONOGRAPHY - COLON CA SCREENING 1972 Colorectal Cancer Screening 1972 FIT - COLON CA SCREENING 1972 FLEX SIG - COLON CA SCREENING 1972 LIPID TESTING 1972 HIV SCREENING 1987 HEPATITIS C SCREENING 07/15/1990 DTAP/TDAP/TD VACCINES (1 - Tdap) 1991 HEPATITIS B VACCINE (1 of 3 - 19+ 3-dose series) 1991 PNEUMOCOCCAL VACCINE 50+ (1 of 1 - PCV) 2022 ZOSTER VACCINE (1 of 2) 2022 COVID-19 VACCINE (1 - 2023-2 5 season) 2024 DEPRESSION SCREENING 08/26/2024 INFLUENZA VACCINE (Season Ended) 2025 HIB VACCINE Aged Out No longer eligi ble based on patient's age to complete this topic HPV VACCINE Aged Out No longer eligi ble based on patient's age to complete this topic MENINGOCOCCAL (Group B) VACC INE SHARED DECISION-MAKING Aged Out No longer eligibl e based on patient's age to complete this topic MENINGOCOCCAL GROUPS A/C/Y/W VACCINE Aged Out No longer eligible b ased on patient's age to complete this topic Insurance [facility] Care Teams Motor Vehicles Supervisor Relationship Specialty Start Date End Date Isaías Marin MD [address] [place] [address] PCP - General 10/31/18
--- OUTSIDE RECORDS SUMMARY | 2025-02-25 13:35 | XMS_ITS | Referral Summary ---
Author Organization [facility] Physician Office Building [address] [place] [address] Care Team Providers Care Composer Teaching Artist Name Role Phone Isaías Marin MD Primary Care Provider [phone]- [phone] Encounters Date Type Department Care Team Description 12/10/2024 Results Follow-Up [facility] Medical [facility] Cardiology [address] [place] [phone] Chuck Schwartz MD NM MPI SPECT (Rest and/or Stress) Multiple Studies 12/09/2024 8:15 AM CDT Ancillary Procedure [facility] Cardiology [address] [place] [address] Chest pressure; 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 from Last 3 Months Allergies Active Allergy Reactions Criticality Noted Date [...] 100 mg tabletIndicati ons:Coronary artery disease involving klamath coronary artery of klamath heart without angina pectoris Take 1 tablet (100 mg total) by mouth daily 90 tablet 3 4 Active atorvastatin (LIPITOR) 80 mg tabletIndicati ons:Coronary artery disease involving klamath coronary artery of klamath heart without angina pectoris TAKE 1 TABLET(80 MG) BY MOUTH DAILY 90 tablet 3 4 Active metoprolol XL (TOPROL-XL) 50 mg extended release tabletIndicati ons: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 We will discuss further options in the future. 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 from Last 3 Months Results * NM MPI SPECT (Rest and/or Stress) Multiple Studies (12/09/2024 10:01 AM CDT) Anatomical Region Laterality Modality Body N/A Nuclear Medicine 12/09/2024 8:28 AM CDT Narrative 12/09/2024 4:17 PM CDT [facility] Medical Group Cardiology [address], [place], [place] [id number] [address], [place] [address] P:[phone] P:[phone] MPI Imaging Report Patient Name: PILY SMITH E : 1970 Study Date: 12/09/2024 8:28:21 AM Gender: M Tech: [facility] Location: [facility] Provider: CHUCK SCHWARTZ Height(Cm): 177.8 BSA: Weight(Kg): [...] pain, and I25.118 Atherosclerotic heart disease of klamath coronary artery with other forms of angina [...] CDT Electronically Signed By: Larry Corral MD, [facility] 12/09/2024 4:17:08 PM CDT Procedure Note Larry Corral MD - 12/09/2024 [facility] Medical Group Cardiology [address] [place] [id number] [address] [address], [place], [place] [address] P:[phone] P:[phone] MPI Imaging Report Patient Name: PILY SMITH E : 1970 Study Date: 12/09/2024 8:28:21 AM Gender: M Tech: [facility] Location: [facility] Provider: CHUCK SCHWARTZ Height(Cm): 177.8 BSA: Weight(Kg): [...] chest pain, and I25.118Atherosclerotic heart disease of klamath coronary artery with other forms of angina [...] CDT Electronically Signed By: Larry Corral MD, [facility] 12/09/2024 4:17:08 PM CDT Chuck Schwartz MD IMG NM PROCEDURES Final R esult from Last 3 Months Insurance [facility] Advance Directives For more information, please contact: [phone] * Full Code (Latest Code Status on File) Date Activated Date Inactivated Comments 02/23/2021 1:47 AM 02/25/2021 6:15 PM Care Teams Composer Teaching Artist Relationship Specialty Start Date End Date Isaías Marin MD PCP - General Family Medicine 09/16/20
== END 2025-02-25 13:32 | disposition home or self-care (01) ==
PROVIDERS: PCP Family Medicine; Visit Provider Physician Assistant
DX: Z12.2 Encounter for screening for malignant neoplasm of respiratory organs (principal); Z87.891 Personal history of nicotine dependence
CPT/HCPCS: 71271

== ENCOUNTER 2025-03-19 08:08 | Outpatient (CLI) | payer OTHER, SELFPAY ==
--- OUTSIDE RECORDS SUMMARY | 2025-03-19 08:13 | XMS_ITS | Continuity of Care Document ---
Author Organization [facility] Address [address] [place] [address] [place] [address] Phone Care Team Providers Care Management Engineer Name Role Phone Clara Jones Unavailable Unavailable Procedures Procedure Date Office/outpatient Visit, [facility] Office/outpatient Visit, [facility] Advance Directives Directive Yes / No Effective Date File Name No Information Encounters Encounter Description Practice Location Reason(s) For Visit Diagnoses Date Provider Providers Copied on Encounter Office/outpat ient Visit, [facility], [address] [place] [address] [address], [place], [place], [id number], tel:[phone] [facility] No Information 0 Karen Elizabeth. [address] , [address], [place], [address], [place]. tel:[phone] Office/outpat ient Visit, [facility], [address] [place] [address] [address], [place], [place], [id number], tel:[phone] [facility] No Information 0 Linda Pearce. [address] , [address], [place], [address], [place]. tel:[phone] Family History Family Member Type Diagnosis Age At Onset No Information Payers Payer name Insurance type Covered republican ID Authorpippaa tijaclyn(s) [employer] [id number] Social History Type Description Quantity Date Captured [...]
--- OUTSIDE RECORDS SUMMARY | 2025-03-19 08:13 | XMS_ITS | Clinical Summary ---
Author Organization [facility] Address [address] [place] [address] Care Team Providers Care [employer] Group Leader Name Role Phone Isaías Marin MD Primary Care Provider Source Comments [facility] [employer],non-owned Affiliates and Associated Physician Practices is amultiple site organization consisting of ambulatory clinics and hospital sitesin [place], [place], [place] and [place]. This disclosure is being madepursuant to the Care Everywhere program and may not contain all information available regarding this patient. 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
--- OUTSIDE RECORDS SUMMARY | 2025-03-19 08:13 | XMS_ITS | Clinical Summary ---
Author Organization [facility] Physician Office Building [address] [place] [address] Care Team Providers Care Supervising Chef Name Role Phone Isaías Marin MD Primary Care Provider [phone] Allergies Active Allergy Reactions Criticality Noted Date Comments Povidone-Iodine Rash,Other (See comments) Medium 02/23 Reaction: Medications acetaminophen 500 mg capsule Take 2 capsules (1,000 mg total) by mouth every 6 (six) hours 30 tablet 02/26/20 21 Active albuterol HFA (PROVENTIL HFA,VENTOLIN HFA,PROAIR HFA) 90 mcg/actuation inhaler 02/16/20 22 Active aspirin 81 mg enteric coated tablet Take 1 tablet (81 mg total) by mouth daily Active nitroglycerin (NITROSTAT) 0.4 mg SL tablet ONE TABLET UNDER TONGUE NEEDED FOR CHEST PAIN.MAY REPEAT IN 5 MINUTES FOR QA TOTAL OF 3 TIMES. IF CHEST PAIN PERSISTS, CALL 911. 25 tablet 09/24/19 23 Active Additional Information Patient taking differently: As needed, Reported on 03/11/2025 losartan (COZAAR) 100 mg tabletIndicati ons:Coronary artery disease involving aniak coronary artery of aniak heart without angina pectoris Take 1 tablet (100 mg total) by mouth daily 90 tablet 3 05/21/20 24 Active cyclobenzaprin e (FLEXERIL) 10 mg tablet Take 1 tablet (10 mg total) by mouth 09/23/19 25 Active amLODIPine (NORVASC) 5 mg tablet TAKE 1 TABLET(5 MG) BY MOUTH DAILY 30 tablet 7 01/29/20 25 Active atorvastatin (LIPITOR) 80 mg tabletIndicati ons:Coronary artery disease involving aniak coronary artery of aniak heart without angina pectoris TAKE 1 TABLET(80 MG) BY MOUTH DAILY 90 tablet 3 03/02/20 25 Active metoprolol XL (TOPROL-XL) 50 mg extended release tabletIndicati ons:Coronary artery disease of aniak artery of aniak heart with stable angina pectoris TAKE 1 TABLET(50 MG) BY MOUTH DAILY 90 tablet 2 03/15/20 25 Active atorvastatin (LIPITOR) 80 mg tabletIndicati ons:Coronary artery disease involving aniak coronary artery of aniak heart without angina pectoris TAKE 1 TABLET(80 MG) BY MOUTH DAILY 90 tablet 3 06/03/20 24 025 Discontinued metoprolol XL (TOPROL-XL) 50 mg extended release tabletIndicati ons:Coronary artery disease of aniak artery of aniak heart with stable angina pectoris TAKE 1 TABLET(50 MG) BY MOUTH DAILY 90 tablet 3 06/03/20 24 025 Discontinued Active Problems Problem Noted Date Diagnosed Date Hypersomnolence 11/05/2024 Chest pressure 11/05/2024 Severe obesity 11/05/2024 Morbid (severe) obesity due to excess calories 0 10/19/2022 Body mass index 40.0-44.9, adult (CMS/HCC) 10/19 Mixed hyperlipidemia 06/15/2022 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 We will discuss further options in the future. 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 (Primary Dx); Aneurysm of ascending aorta without rupture; GABBY (obstructive sleep apnea) 02/25/2025 Orders Only [facility] Health Information Management [address] [place] [address] Scanning, Provider from Last 3 Months Surgical History Surgery [...] on file Legal Sex Male 11:19 AM ASSOCIATE BUYER Gender Identity Male 12/07/2024 8:04 PM CDT Sexual Orientation Not on file Obstetrics History Last Filed Vital Signs Vital Sign Reading Time Taken Comments Blood Pressure 126/82 03/11/2025 9:26 AM CDT Pulse 61 03/11/2025 9:26 AM CDT Temperature 36.6 C (97.8 F) 03/08/2021 9:13 AM CDT Respiratory Rate 18 03/08/2021 9:13 AM CDT Oxygen Saturation 97% 03/11/2025 9:26 AM CDT Inhaled Oxygen Concentration - - Weight 127 kg (280 lb) 03/11/2025 9:26 AM CDT Height 177.8 cm (5' 10) 03/11/2025 9:26 AM CDT Body Mass Index 40.18 03/11/2025 9:26 AM CDT Plan of Treatment Health Maintenance [...] Hypertension Care Plan Chronic Care Management Marga Lynch RN Note: Problem: Hypertension Goals: 1. Meet [...] Procedure Name Priority Date/Time Associated Diagnosis Comments SCAN - RADIOLOGY/IMAGING 02/25/2025 from Last 3 Months Results * SCAN - RADIOLOGY/IMAGING (02/25/2025) Anatomical Region Laterality Modality Other us Provider Scanning Edited Result - Final from Last 3 Months Insurance [facility] Advance Directives For more information, please contact: [phone] * Full Code (Latest Code Status on File) Date Activated Date Inactivated Comments 02/23/2021 1:47 AM 02/25/2021 6:15 PM Care Teams Supervising Chef Relationship Specialty Start Date End Date Isaías Marin MD PCP - General Family Medicine 09/16/20
--- OUTSIDE RECORDS SUMMARY | 2025-03-19 08:13 | XMS_ITS | Referral Summary ---
Author Organization [facility] Physician Office Building 2 Address [address] [place] [address] Care Team Providers Care Geophysics Scientist Name Role Phone Isaías Marin MD Primary Care Provider Encounters Date Type Department Care Team Description 03/11/2025 9:30 AM CDT Office Visit [facility] Medical Group Cardiology [address] [place] [phone] Cheyenne Diop NP Coronary artery disease of zuni artery of zuni heart with stable angina pectoris (Primary Dx); Aneurysm of ascending aorta without rupture; GABBY (obstructive sleep apnea) 02/25/2025 Orders Only [facility] Health Information Management [address] [place] [address] Scanning, Provider from Last 3 Months Allergies Active Allergy [...] 100 mg tabletIndicati ons:Coronary artery disease involving zuni coronary artery of zuni heart without angina pectoris Take 1 tablet (100 mg total) by mouth daily 90 tablet 3 05/21/20 24 Active cyclobenzaprin e (FLEXERIL) 10 mg tablet Take 1 tablet (10 mg total) by mouth 09/23/19 25 Active amLODIPine (NORVASC) 5 mg tablet TAKE 1 TABLET(5 MG) BY MOUTH DAILY 30 tablet 7 01/29/20 25 Active atorvastatin (LIPITOR) 80 mg tabletIndicati ons:Coronary artery disease involving zuni coronary artery of zuni heart without angina pectoris TAKE 1 TABLET(80 MG) BY MOUTH DAILY 90 tablet 3 03/02/20 25 Active metoprolol XL (TOPROL-XL) 50 mg extended release tabletIndicati ons:Coronary artery disease of zuni artery of zuni heart with stable angina pectoris TAKE 1 TABLET(50 MG) BY MOUTH DAILY 90 tablet 2 03/15/20 25 Active atorvastatin (LIPITOR) 80 mg tabletIndicati ons:Coronary artery disease involving zuni coronary artery of zuni heart without angina pectoris TAKE 1 TABLET(80 MG) BY MOUTH DAILY 90 tablet 3 06/03/20 24 025 Discontinued metoprolol XL (TOPROL-XL) 50 mg extended release tabletIndicati ons:Coronary artery disease of zuni artery of zuni heart with stable angina pectoris TAKE 1 TABLET(50 MG) BY MOUTH DAILY 90 tablet 3 06/03/20 24 025 Discontinued Active Problems Problem Noted Date Diagnosed Date Hypersomnolence 11/05/2024 Chest pressure 11/05/2024 Severe obesity 11/05/2024 Morbid (severe) obesity due to excess calories 0 10/19/2022 Body mass index 40.0-44.9, adult ([facility]) 10/19 Mixed hyperlipidemia 06/15/2022 Coronary artery disease of n ative artery of zuni heart with stable angina pectoris 03/15/2022 History [...] 09/26/2020 Assessment & Plan (09/26/2020 11:50 AM DIRECTOR MEDICAL SAFETY): Patient's blood pressure still require some additional [...] 09/26/2020 Assessment & Plan (09/26/2020 11:49 AM DIRECTOR MEDICAL SAFETY): The patient is trying nicotine replacement for [...] on file Legal Sex Male 11:19 AM DIRECTOR MEDICAL SAFETY Gender Identity Male 12/07/2024 8:04 PM CDT [...] 03/11/2025 9:26 AM CDT Plan of Treatment Not on [...] - Final from Last 3 Months Insurance [facility] Advance Directives For more information, please contact: [phone] * Full Code (Latest Code Status on File) Date Activated Date Inactivated Comments 02/23/2021 1:47 AM 02/25/2021 6:15 PM Care Teams Geophysics Scientist Relationship Specialty Start Date End Date Isaías Marin MD PCP - General Family Medicine 09/16/20
--- OUTSIDE RECORDS SUMMARY | 2025-03-19 08:13 | XMS_ITS | Encounter Summary ---
Author Organization [facility] Healthcare Address [address] [place] [address] Care Team Providers Care Client Relations Representative Name Role Phone Isaías Marin MD Primary Care Provider +1- [phone] Encounter Details Date Type Department Care Team (Late st Contact Info) Description 02/25/2025 Orders Only [facility] Health Information Management [address] [place] [address] Scanning, Provider Social History Tobacco Use Types Packs/Day Years Used Date Smoking Tobacco: Every Day Cigarettes 1 30 Smokeless Tobacco: Never Comments:was smoking 2 to 2 1/2 packs [...] on file 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 Gender Identity Male 12/07/2024 8:04 PM CDT Sexual Orientation Not on file documented as of this encounter Plan of Treatment Not on file documented as of this encounter Goals Goal Patient Goal Type Associated Problems [...] lifestyle strategies and compensatory methods as needed documented as of this encounter Procedures Procedure Name Priority Date/Time Associated Diagnosis Comments SCAN - RADIOLOGY/IMAGING 02/25/2025 documented in this encounter Results * SCAN - RADIOLOGY/IMAGING (02/25/2025) Anatomical Region Laterality Modality Other us Provider Scanning Edited Result - Final documented in this encounter Visit Diagnoses Not on filedocumented in this encounter Care Teams Client Relations Representative Relationship Specialty Start Date End Date Isaías Marin MD PCP - General Family Medicine 09/16/20 documented as of this encounter
--- NOTE | 2025-04-14 13:59 | WPDSIXMINUTE ---
Six Minute Walk Procedure Procedure Performed Pulmonary Stress Test (6 min walk) Six Minute Walk Six Minute Walk: This is a 6 minute walk test. The test was performed and interpreted in accordance with the 2014 ERS/ATS task force guidelines. Findings: The patient's resting room air oxygen saturation measured by pulse oximetry was 96%, the heart rate was 81 bpm, and the modified Domo dyspnea score was 0. Patient ambulated for 320 meters and oxygen saturation remained 95 to 96%. At the end of the study the heart rate was 96 bpm and the modified Domo dyspnea score was 2. The patient did not qualify for supplemental oxygen at rest or with ambulation. There are no prior studies for comparison.
--- NOTE | 2025-04-14 14:00 | WPDPFTINT ---
PFT Procedure Performed PFT Procedure Performed Spirometry with Pre/Post Bronchodilator Plethysmography (Lung Vol) Diffusing Cap (DLCO) Flow Vol Loop PFT Interpretation This is a pulmonary function test with pre and post-bronchodilator spirometry, plethysmography and diffusing capacity. The test was performed and results interpreted in accordance with the 2019 and 2005 ATS/ERS Task Force guidelines respectively using the Global Lung Function Initiative-2012 reference equations. Patient demonstrated good effort and cooperation. Reproducibility criteria were met. The quality of the pre bronchodilator spirometry maneuver was Grade B and post bronchodilator spirometry maneuver was Grade A. Findings: Spirometry: The contour the inspiratory and expiratory flow tracing are normal. The pre bronchodilator FVC is 4.18 L, 82% predicted. The pre bronchodilator FEV1 is 3.02 L, 76% predicted. The pre bronchodilator FEV1: FVC ratio is 72%. The post bronchodilator FVC is 4.10 L, representing a 2% decrease. The post bronchodilator FEV1 is 3.09 L, representing a 2% increase. The post bronchodilator FEV1: FVC ratio was 75%. Plethysmography: The total lung capacity is 6.67 L, 93% predicted. The functional residual capacity is 3.27 L, 89% predicted. The residual volume is 2.40 L, 113% predicted. Diffusing capacity: The diffusing capacity unadjusted for hemoglobin and carboxyhemoglobin is 24.7, 80% predicted. The diffusing capacity adjusted for alveolar volume is 4.55, 103% predicted. Impression: The FEV1 is less than 80% predicted and the FEV1: FVC ratio is greater than 70% consistent with Preserved Ratio Impaired Spirometry (PRISm) with a normal FVC. The spirometry is normal without evidence of an obstructive abnormality. There is no significant improvement after inhaling a single dose of albuterol. The lung volumes are normal. The diffusing capacity is normal. There are no prior studies for comparison
== END 2025-03-19 08:09 | disposition home or self-care (01) ==
LOC: ANHPFT 08:10
PROVIDERS: PCP Family Medicine; Visit Provider Physician Assistant
DX: R06.02 Shortness of breath (principal); Z87.891 Personal history of nicotine dependence
CPT/HCPCS: 94060; 94618; 94726; 94729

== ENCOUNTER 2025-06-10 12:43 | Outpatient (CLI) | payer OTHER, SELFPAY ==
--- OUTSIDE RECORDS SUMMARY | 2010-04-13 05:15 | XMS_ITS | Continuity of Care Document ---
Author Organization [facility] Address [address] [place] [address] [place] [address] Phone Care Team Providers Care Medication Aide Name Role Phone Clara Jones Unavailable Unavailable Procedures Procedure Date Office/outpatient Visit, [facility] Office/outpatient Visit, [facility] Advance Directives Directive Yes / No Effective Date File Name No Information Encounters Encounter Description Practice Location Reason(s) For Visit Diagnoses Date Provider Providers Copied on Encounter Office/outpat ient Visit, [facility], [address] [place] [address] [address], [place], [place], [id number], tel:[phone] [facility] No Information 0 Karen Elizabeth. [address] [facility] , [address], [place], [address], [place]. tel:[phone] Office/outpat ient Visit, [facility], [address] [place] [address] [address], [place], [place], [id number], tel:[phone] [facility] No Information 0 Linda Pearce. [address] [facility] , [address], [place], [address], [place]. tel:[phone] Family History Family Member Type Diagnosis Age At Onset No Information Payers Payer name Insurance type Covered libertarian ID Authoriza tijaclyn(s) [employer] [id number] Social History Type Description Quantity Date Captured Comments Sex Male Smoking Status No Information Chief Complaint And Reason For Visit No Information Reason For Referral Reason For Referral No Information History Of Present Illness Encounter Date Complaint History Of Prese nt Illness No Information Functional Status Date Functional Assessmen t No Information Instructions Date Instruction Additional Infor mation No Information Assessments Type Assessment Date No Information Patient Care Teams Name Effective Dates (start - stop) Status Members No Information
[2025-06-10 13:21] LABS: Hematocrit 48.6 % (42.0-52.0); Hemoglobin 16.1 g/dL (14.0-18.0); Immature Granulocyte Percent A 0.6 % (0-0.5); Lymphocytes Absolute Auto 3.28 K/mm3 (0.9-3.2); Mean Corpuscular HGB Conc 33.1 g/dl (32-36); Mean Corpuscular Hemoglobin 30.0 pg (26-34); Mean Corpuscular Volume 90.5 fl (80-100); Nucleated Red Blood Cells Absolute Auto 0.000 K/mm3 (0.0-0.012); Nucleated Red Blood Cells Perc 0.0 % (0.0-0.2); Platelet Count Result 232 k/mm3 (150-375); Red Blood Count 5.37 M/mm3 (4.6-6.20); White Blood Count 11.9 K/mm3 (4.5-10.0)
[2025-06-10 13:41] LABS: Alanine Aminotransferase 26 U/L (6-50); Albumin Level 4.1 g/dL (3.5-5.1); Alkaline Phosphatase 109 U/L (38-126); Anion Gap 6 mmol/L (4-12); Aspartate Amino Transferase 33 U/L (17-59); Bilirubin,Total 0.5 mg/dL (0.2-1.3); Blood Urea Nitrogen 16 mg/dL (9-20); Calcium 9.0 mg/dL (8.4-10.2); Carbon Dioxide 26 mmol/L (22-30); Chloride 106 mmol/L (98-107); Cholesterol 166 mg/dL (0-200); Estimated Glomerular Filt Rate > 60; Glucose 91 mg/dL (65-110); HDL Direct 35 mg/dL; Magnesium 2.1 mg/dL (1.6-2.3); Potassium 4.3 mmol/L (3.4-5.0); Sodium 138 mmol/L (137-145); Total Protein 7.8 g/dL (6.3-8.2); Triglycerides 159 mg/dL (<150)
[2025-06-10 14:17] LABS: Thyroid Stimulating Hormone 1.500 uIU/mL (0.465-4.680)
--- OUTSIDE RECORDS SUMMARY | 2025-06-10 14:21 | XMS_ITS | Clinical Summary ---
Author Organization [facility] Address [address] [place] [address] Care Team Providers Care Stereotyper Name Role Phone Isaías Marin MD Primary Care Provider Source Comments [facility],non-owned Affiliates and Associated Physician Practices is amultiple site organization consisting of ambulatory clinics and hospital sitesin [place], [place], [place] and [place]. This disclosure is being madepursuant to the Care Everywhere program and may not contain all information available regarding this patient. 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
--- OUTSIDE RECORDS SUMMARY | 2025-06-10 14:21 | XMS_ITS | Clinical Summary ---
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 TAKE 1 TABLET(50 MG) BY MOUTH DAILY 90 tablet 2 03/15/20 25 Active losartan (COZAAR) 100 mg tabletIndicati ons:Coronary artery disease involving alturas coronary artery of alturas heart without angina pectoris TAKE 1 TABLET(100 MG) BY MOUTH DAILY 90 tablet 3 05/13/20 25 Active amLODIPine (NORVASC) 5 mg tablet TAKE 1 TABLET(5 MG) BY MOUTH DAILY 30 tablet 5 05/31/20 25 Active atorvastatin (LIPITOR) 80 mg tabletIndicati ons:Coronary artery disease involving alturas coronary artery of alturas heart without angina pectoris TAKE 1 TABLET(80 MG) BY MOUTH DAILY 90 tablet 3 06/08/20 25 Active losartan (COZAAR) 100 mg tabletIndicati ons:Coronary artery disease involving alturas coronary artery of alturas heart without angina pectoris Take 1 tablet (100 mg total) by mouth daily 90 tablet 3 05/21/20 24 025 Discontinued amLODIPine (NORVASC) 5 mg tablet TAKE 1 TABLET(5 MG) BY MOUTH DAILY 30 tablet 7 01/29/20 25 025 Discontinued atorvastatin (LIPITOR) 80 mg tabletIndicati ons:Coronary artery disease involving alturas coronary artery of alturas heart without angina pectoris TAKE 1 TABLET(80 MG) BY MOUTH DAILY 90 tablet 3 03/02/20 25 025 Discontinued Active Problems Problem Noted Date Diagnosed Date Hypersomnolence 11/05/2024 Chest pressure 11/05/2024 Severe obesity 11/05/2024 Morbid (severe) obesity due to excess calories 0 10/19/2022 Body mass index 40.0-44.9, adult ([facility]) 10/19 Mixed hyperlipidemia 06/15/2022 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 We will discuss further options in the future. 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 Gender Identity Male 12/07/2024 8:04 PM CDT [...] of 2) 2022 Covid-19 Vaccine (2 - 2024- season) 04/26/202505/2021 Influenza Vaccine (#1) 2025 Goals Goal Patient [...] lifestyle strategies and compensatory methods as needed Insurance [facility] Advance Directives For more information, please contact: [phone] * Full Code (Latest Code Status on File) Date Activated Date Inactivated Comments 02/23/2021 1:47 AM 02/25/2021 6:15 PM Care Teams Press Set Up Person Relationship Specialty Start Date End Date Isaías Marin MD PCP - General Family Medicine 09/16/20
--- OUTSIDE RECORDS SUMMARY | 2025-06-10 14:21 | XMS_ITS | Encounter Summary ---
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
[2025-06-10 19:36] LABS: Prostate Specific Antigen 0.3 ng/mL (< OR = 4.0)
[2025-06-10 20:12] LABS: Vitamin B12 329.0 pg/mL (239-931)
[2025-06-10 20:57] LABS: Hemoglobin A1C 5.7 % (<5.7)
== END 2025-06-10 12:44 | disposition home or self-care (01) ==
LOC: ANHLAB 12:47
PROVIDERS: PCP Family Medicine; Visit Provider Nurse Practitioner Family
DX: E78.5 Hyperlipidemia, unspecified (principal); R53.83 Other fatigue; I10 Essential (primary) hypertension; Z13.1 Encounter for screening for diabetes mellitus; Z13.29 Encounter for screening for other suspected endocrine disorder; Z12.5 Encounter for screening for malignant neoplasm of prostate
CPT/HCPCS: 36415; 80053; 80061; 82306; 82607; 82746; 83036; 83735; 84153; 84443; 85025